=== PATIENT | female | born 2000 | race Caucasian/White ===

== ENCOUNTER 2021-03-21 00:03 | Emergency (ER) | payer OTHER, SELFPAY ==
--- NOTE | ~2021-03-21 | CT_ITS ---
EXAMINATION: CT ABDOMEN AND PELVIS WITH CONTRAST CLINICAL INFORMATION: Left lower quadrant pain COMPARISON: None TECHNIQUE: Multidetector volumetric images were obtained from the superior aspect of the liver through the pubic symphysis following administration 85 mL of Omnipaque 350 intravenous contrast. Sagittal and coronal reformatted images were obtained on the technologist's workstation. Oral contrast: No This CT examination was performed using dose optimization techniques as appropriate, variously including the following: *Automated exposure control *Adjustment of mA and/or kV according to patient size (this includes techniques or standardized protocols for targeted exams where dose is matched to indication/reason for exam; i.e. extremities or head) *Use of iterative reconstruction technique DLP: 778 mGy-cm FINDINGS: LUNG BASES: The visualized lung bases are unremarkable. LIVER, GALLBLADDER, AND BILIARY TREE: The liver is normal in size, shape, and attenuation. No focal hepatic lesion or biliary ductal dilatation is present. The gallbladder is unremarkable with no evidence of radiopaque gallstones, gallbladder wall thickening, or obvious pericholecystic inflammatory changes. PANCREAS: Unremarkable. SPLEEN: Unremarkable. ADRENAL GLANDS: Unremarkable. KIDNEYS AND URETERS: The kidneys are normal in size, shape, and attenuation. No hydronephrosis, hydroureter, or obstructing calculi seen. No perinephric stranding. BLADDER: Unremarkable. GASTROINTESTINAL TRACT: The small and large bowel are unremarkable. The appendix is unremarkable. No free fluid or free air is seen. ABDOMINAL WALL: No significant hernia is appreciated. LYMPH NODES: Normal. VASCULAR: Unremarkable. PELVIC VISCERA: There is mild diffuse prominence of the uterus. OSSEOUS STRUCTURES: Unremarkable. CT/CT abdomen pelvis w con IMPRESSION: No acute findings identified in the abdomen/pelvis. Mild diffuse prominence of the uterus; though no discrete fibroids are seen, this could be further evaluated with pelvic ultrasound.
[2021-03-21 00:53] VITALS: BP 130/83; PULSE 75; RESP 18; TEMP 36.7; O2SAT 100; BMI 35.2
[2021-03-21 02:22] VITALS: BP 135/68; PULSE 71; RESP 18; O2SAT 98
--- NOTE | 2021-03-21 02:23 | PC.NURSE ---
This RN to bedside speaking with patient. Reports vaginal delivery of baby girl 1 week ago, with episiotomy, large child (9lbs), pushed for 4 hours. During , patient had gestational diabetes, denies HTN. Pt presents to ED today with LLQ pain, headache, no vision changes, and mildly elevated blood pressure. Pt is well. Vitals: pulse 70 NSR, 98% room air, 16 respirations/minute, BP 135/68. Will continue to monitor.
--- NOTE | 2021-03-21 02:39 | PC.NURSE ---
Patient in bathroom attempting to provide urine specimen at this time. Pt aware of plan to obtain IV access, labs, and to remain on continuous monitoring until further notice, per . Will continue to monitor.
[2021-03-21 02:51] VITALS: BP 133/73; PULSE 64; RESP 18; O2SAT 99
[2021-03-21 02:58] LABS: MANUAL DIFF FLAG NO
[2021-03-21 02:59] LABS: Basophils Percent Auto 0.3 % (0-2); Eosinophils Absolute Auto 0.2 X10*3/uL (0.0-0.4); Eosinophils Percent Auto 1.8 % (0-4); Hematocrit 28.7 % (37-47); Hemoglobin 9.2 g/dl (12.0-16.0); Imm Gran Abs Auto 0.15 X10*3/uL (0.00-0.03); Imm Gran Pct Auto 1.1 % (0.0-0.4); Lymphocytes Absolute Auto 3.2 X10*3/uL (1.2-4.9); Lymphocytes Percent Auto 23.7 % (20-40); Mean Corpuscular HGB Conc 32.1 g/dl (31.0-35.0); Mean Corpuscular Hemoglobin 28.3 pg (27.0-33.0); Mean Corpuscular Volume 88.3 fL (80-98); Mean Platelet Volume 9.7 fL (9.4-12.3); Monocytes Percent Auto 7.2 % (2-11); Neutrophils Absolute Auto 8.7 X10*3/uL (2.0-8.3); Neutrophils Percent Auto 65.9 % (45-73); Platelet Count 504 X10*3/uL (160-400); Red Blood Count 3.25 X10*6/uL (4.20-5.50); Red Cell Distribution Width 15.1 % (11.0-16.0); White Blood Count 13.3 X10*3/uL (4.8-10.8)
[2021-03-21] MEDS: ondansetron HCL 4 MG/2 ML VIAL IVPUSH (03:00)
[2021-03-21] MEDS: Ketorolac Tromethamine 30 MG/ML VIAL IVPUSH (03:00)
[2021-03-21 03:01] LABS: Glucose Urine UA NEG (NEG); Leukocyte Esterase Urine NEG (NEG); Nitrite Urine NEG (NEG); Specific Gravity - Urine >= 1.030 (1.005-1.025); Urine Blood 3+ (NEG); Urine Ketones NEG (NEG); Urine Protein NEG (NEG-TRACE)
[2021-03-21 03:02] LABS: Appearance Urine HAZY; Color Urine YELLOW
[2021-03-21 03:10] LABS: Mucus Urine 2+ /LPF; Squamous Epithelial Cell Urine 1+ /LPF
[2021-03-21 03:28] LABS: Alanine Aminotransferase 23 U/L (0-31); Alkaline Phosphatase 111 U/L (39-117); Anion Gap 15 (12-20); Aspartate Amino Transferase 15 U/L (5-31); Bilirubin Direct < 0.2 mg/dL (0.0-0.5); Bilirubin Total 0.3 mg/dL (0.0-1.0); Blood Urea Nitrogen 19 mg/dL (9-16); Calcium 9.4 mg/dL (8.4-10.2); Carbon Dioxide 17 mmol/L (22-29); Chloride 109 mmol/L (96-108); Creatinine Clr Calc Pharmacy 127.6; Estimated Glomerular Filt Rate > 60; Glucose Random 97 mg/dL (60-115); Lipase 24 U/L (8-78); Potassium 4.1 mmol/L (3.3-5.1); Sodium 137 mmol/L (135-145); Total Protein 6.8 g/dL (6.5-8.0)
[2021-03-21] MEDS: iohexoL 350 MG/ML 100 ML INFUS..BTL 85 ML IV (03:51)
--- NOTE | 2021-03-21 04:32 | ED_ITS ---
HPI - Abdominal Pain General Chief Complaint: Abdominal Pain Stated Complaint: abdominal pain Time Seen by Provider: 03/21/21 02:03 History of Present Illness HPI narrative: Patient is a 20-year-old female status post vaginal delivery approximately 1 week ago complaining of pain to the left lower quadrant. Patient's vaginal bleeding has been improving. There is no foul small order. T here is no fever no chills. No vomiting. No diaphoresis. No history kidney stone. No coughing or congestion or upper respiratory symptoms. Patient is from home. No chest pain or shortness of breath. No leg swelling. No history of preeclampsia. Positive nausea. Related Data Home Medications Medication Instructions Recorded Confirmed docusate sodium 1 cap PO BID 03/21/21 03/21/21 ibuprofen 1 tab PO Q6H PRN 03/21/21 03/21/21 Allergies Allergy/AdvReac Type Severity Reaction Status Date / Time No Known Allergies Allergy Unverified 06/26/20 19:20 [No Known Allergies*] Review of Systems Review of Systems Constitutional: No Weight loss, No Fever, No Chills, No Night Sweats, No Fatigue, No Malaise ENT/Mouth: No Hearing loss, No Ear Pain, No Nasal Congestion, No Sinus Pain, No Hoarseness, No sore throat, No Rhinorrhea, No Swallowing Difficulty Eyes: No Eye Pain, No Swelling, No Redness, No Foreign Body, No Discharge, No Vision Changes Cardiovascular: No Chest Pain, No SOB, No Dyspnea on Exertion, No Orthopnea, No Edema, No Palpitations Respiratory: No Cough, No Sputum, No Wheezing, No Smoke Exposure, No Dyspnea Gastrointestinal: No Nausea, No Vomiting, No Diarrhea, No Constipation, positive abdominal Pain, No Hematochezia, No Melena Genitourinary: no irregular bleeding, No Dysuria, No Urinary Frequency, No Hematuria, No Urinary Incontinence, No Urgency, No Flank Pain, No Urinary Flow Changes, No Hesitancy Musculoskeletal: No joint pain, No Myalgias, No Joint Swelling Skin: No Skin Lesions, No rash Neuro: No Weakness, No Numbness, No Paresthesias, No Loss of Consciousness, No Dizziness, No Headache Psych: No Anxiety/Panic, No Depression, No SI/HI/AH/VH, No Social Issues, Heme/Lymph: No Bruising, No Bleeding,No Lymphadenopathy Endocrine: No Polyuria, No Polydipsia, No Temperature Intolerance Physical Exam Vital Signs: Vital Signs: Last Vital Signs Temp 98.0 F 03/21/21 00:53 Pulse 75 03/21/21 00:53 Resp 18 03/21/21 00:53 BP 130/83 03/21/21 00:53 Pulse Ox 100 03/21/21 00:53 Body Mass Index 35.2 Appearance: Alert. Oriented X3. No acute distress. Eyes: Pupils equal, round and reactive to light. ENT: Pharynx normal. Neck: Normal inspection. Neck supple. No lymph nodes noted. No crepitus CVS: Normal heart rate and rhythm. Pulses normal. Normal S1 and S2 Respiratory: No respiratory distress. Breath sounds normal. No Wheezing. No rales Abdomen: Soft and nontender. No rigidity. No distention. good BS x4 Skin: Skin warm and dry. Normal skin color. Normal skin turgor. Extremities: No lower extremity edema. Neurovascular intact to all extremities. No Lacerations. No Rash Neuro: Oriented X 3. No motor deficit. No sensory deficit. Moving all extermities. No slurred speech MDM - Abdominal Pain MDM Narrative Medical decision making narrative: Patient's CT of the abdomen showed no acute findings. No abscess no perforation. Patient's electrolytes unremarkable. Labs are normal. Urine positive blood but no evidence for infection. Will discharge patient home close follow-up on an outpatient basis. Patient's blood pressure is now normal. With normal platelets. Normal LFTs. No evidence for preeclampsia. In stable condition with discharge home. Lab Data Result diagrams: 03/21/21 02:53 03/21/21 02:53 Labs: Lab Results 03/21/21 03/21/21 03/21/21 Range/Units 02:46 02:53 02:53 WBC 13.3 H (4.8-10.8) X10*3/uL RBC 3.25 L (4.20-5.50) X10*6/uL Hgb 9.2 L (12.0-16.0) g/dl Hct 28.7 L (37-47) % MCV 88.3 (80-98) fL MCH 28.3 (27.0-33.0) pg MCHC 32.1 (31.0-35.0) g/dl RDW 15.1 (11.0-16.0) % Plt Count 504 H (160-400) X10*3/uL MPV 9.7 (9.4-12.3) fL Immature Gran % (Auto) 1.1 H (0.0-0.4) % Neut % (Auto) 65.9 (45-73) % Lymph % (Auto) 23.7 (20-40) % [place] % (Auto) 7.2 (2-11) % Eos % (Auto) 1.8 (0-4) % Baso % (Auto) 0.3 (0-2) % Lymph # (Auto) 3.2 (1.2-4.9) X10*3/uL [place] # (Auto) 1.0 (0.1-1.2) X10*3/uL Eos # (Auto) 0.2 (0.0-0.4) X10*3/uL Baso # (Auto) 0.0 (0.0-0.2) X10*3/uL Abs Immat Gran (auto) 0.15 H (0.00-0.03) X10*3/uL Absolute Neuts (auto) 8.7 H (2.0-8.3) X10*3/uL Absolute Nucleated RBC 0.000 (0.0-0.012) X10*3/uL Nucleated RBC % (auto) 0.0 (0.0-0.2) /100WBC Sodium 137 (135-145) mmol/L Potassium 4.1 (3.3-5.1) mmol/L Chloride 109 H (96-108) mmol/L Carbon Dioxide 17 L (22-29) mmol/L Anion Gap 15 (12-20) BUN 19 H (9-16) mg/dL Creatinine 0.66 (0.5-1.4) mg/dL Estim Creat Clear Calc 127.6 Estimated GFR > 60 Random Glucose 97 (60-115) mg/dL Calcium 9.4 (8.4-10.2) mg/dL Total Bilirubin 0.3 (0.0-1.0) mg/dL Direct Bilirubin < 0.2 (0.0-0.5) mg/dL AST 15 (5-31) U/L ALT 23 (0-31) U/L Alkaline Phosphatase 111 (39-117) U/L Total Protein 6.8 (6.5-8.0) g/dL Albumin 4.0 (3.5-5.0) g/dL Lipase 24 (8-78) U/L Urine Color YELLOW Urine Appearance HAZY Urine pH 6.0 (5.0-8.0) Ur Specific [place] >= 1.030 H (1.005-1.025) Urine Protein NEG (NEG-TRACE) MG/DL Urine Glucose (UA) NEG (NEG) MG/DL Urine Ketones NEG (NEG) MG/DL Urine Blood 3+ H (NEG) Urine Nitrite NEG (NEG) Ur Leukocyte Esterase NEG (NEG) Urine RBC 15-29 H (0) /HPF Urine WBC 1-4 (0-4) /HPF Ur Squamous Epith Cells 1+ /LPF Urine Bacteria NONE /LPF Urine Mucus 2+ /LPF Discharge Plan Discharge Clinical Impression: Abdominal pain Patient Disposition: Home, Self-Care Instructions: Abdominal Pain (ED) Prescriptions: No Action docusate sodium 100 mg capsule 1 cap PO BID RF: 0 ibuprofen 600 mg tablet 1 tab PO Q6H PRN (Reason: Pain) RF: 0 Referrals: Physician,Unknown [Primary Care Provider] - 2 days (Follow-up with your OBGYN in 2 days.) [facility] Past Medical History Attestation statement: The following information was validated with the patient. Medical History Asthma Vaginal delivery Surgical History No history of previous surgery Social History Social History Advance Directives: No Patient : No (delivered baby 1 week ago.)
[2021-03-21 05:05] VITALS: BP 116/78; PULSE 64; RESP 18; O2SAT 100
== END 2021-03-21 05:16 | disposition home or self-care (01) ==
PROVIDERS: Emergency Provider Emergency Medicine Emergency Medical Services
DX: O90.89 Other complications of the puerperium, not elsewhere classified (principal); R10.9 Unspecified abdominal pain
CPT/HCPCS: 36415; 74177; 80048; 80076; 81001; 81003; 83690; 85025; 96374; 96375; 99284; J1885; J2405; Q9967

== ENCOUNTER 2021-11-03 11:20 | Outpatient (REF) | payer OTHER, SELFPAY ==
[2021-11-03 11:38] LABS: MANUAL DIFF FLAG NO
[2021-11-03 12:13] LABS: Alanine Aminotransferase 49 U/L (0-31); Albumin Level 4.6 g/dL (3.5-5.0); Alkaline Phosphatase 87 U/L (39-117); Anion Gap 12 (12-20); Aspartate Amino Transferase 33 U/L (5-31); Bilirubin Total 0.4 mg/dL (0.0-1.0); Blood Urea Nitrogen 19 mg/dL (9-16); Calcium 10.1 mg/dL (8.4-10.2); Carbon Dioxide 24 mmol/L (22-29); Chloride 109 mmol/L (96-108); Cholesterol 120 mg/dL; Estimated Glomerular Filt Rate > 60; Glucose Fasting 106 mg/dL (60-99); HDL Cholesterol 53 mg/dL; Iron 53 mcg/dL (30-160); LDL Cholesterol Calculated 58 mg/dl; Percent Iron Saturation 15 % (15-50); Potassium 4.7 mmol/L (3.3-5.1); Sodium 140 mmol/L (135-145); Total Iron Binding Capacity 360 mcg/dL (228-428); Total Protein 7.6 g/dL (6.5-8.0); Triglycerides 47 mg/dL; Unsaturated Iron Binding 307 ug/dL
[2021-11-03 12:33] LABS: TSH reflex Free T4 0.36 uIU/mL (0.32-4.0)
[2021-11-03 14:58] LABS: Basophils Absolute Auto 0.1 X10*3/uL (0.0-0.2); Basophils Percent Auto 0.5 % (0-2); Eosinophils Absolute Auto 0.2 X10*3/uL (0.0-0.4); Eosinophils Percent Auto 1.7 % (0-4); Hematocrit 40.9 % (37.0-47.0); Hemoglobin 12.9 g/dl (12.0-16.0); Imm Gran Abs Auto 0.03 X10*3/uL (0.00-0.03); Imm Gran Pct Auto 0.3 % (0.0-0.4); Lymphocytes Absolute Auto 3.1 X10*3/uL (1.2-4.9); Lymphocytes Percent Auto 32.9 % (20-40); Mean Corpuscular HGB Conc 31.5 g/dl (31.0-35.0); Mean Corpuscular Hemoglobin 27.6 pg (27.0-33.0); Mean Corpuscular Volume 87.6 fL (80.0-98.0); Mean Platelet Volume 11.1 fL (9.4-12.3); Monocytes Absolute Auto 0.6 X10*3/uL (0.1-1.2); Monocytes Percent Auto 6.6 % (2-11); Neutrophils Absolute Auto 5.5 x10*3/uL (2.0-8.3); Platelet Count 383 X10*3/uL (160-400); Red Blood Count 4.67 X10*6/uL (4.20-5.50); Red Cell Distribution Width 14.7 % (11.0-16.0); White Blood Count 9.5 X10*3/uL (4.8-10.8)
== END 2021-11-03 11:21 | disposition home or self-care (01) ==
LOC: HO.LAB 11:20
PROVIDERS: Visit Provider Nurse Practitioner Family
DX: E78.00 Pure hypercholesterolemia, unspecified (principal); F41.9 Anxiety disorder, unspecified; I10 Essential (primary) hypertension; Z76.89 Persons encountering health services in other specified circumstances
CPT/HCPCS: 36415; 80053; 80061; 83540; 84443; 85025

== ENCOUNTER 2022-02-24 09:45 | Outpatient (REF) | payer OTHER, SELFPAY ==
--- NOTE | ~2022-02-24 | XR_ITS ---
EXAMINATION: XR chest 2V CLINICAL INFORMATION: Reason for Exam J40 - Bronchitis, not specified as acute or chronic COMPARISON: None TECHNIQUE: 2 views of the chest XR/XR chest 2V FINDINGS/IMPRESSION: * Clear lungs. * No pneumothorax or pleural effusion. * Normal cardiomediastinal silhouette.
[2022-02-24 10:40] LABS: Hematocrit 39.7 % (37.0-47.0); Hemoglobin 13.3 g/dl (12.0-16.0); Mean Corpuscular HGB Conc 33.5 g/dl (31.0-35.0); Mean Corpuscular Hemoglobin 28.5 pg (27.0-33.0); Mean Corpuscular Volume 85.2 fL (80.0-98.0); Mean Platelet Volume 11.3 fL (9.4-12.3); Platelet Count 246 X10*3/uL (160-400); Red Blood Count 4.66 X10*6/uL (4.20-5.50); Red Cell Distribution Width 13.2 % (11.0-16.0); White Blood Count 3.8 X10*3/uL (4.8-10.8)
[2022-02-24 11:13] LABS: Iron 54 mcg/dL (30-160); Percent Iron Saturation 18 % (15-50); Total Iron Binding Capacity 295 mcg/dL (228-428); Unsaturated Iron Binding 241 ug/dL
[2022-02-24 11:21] LABS: Ferritin 156 ng/mL (10-122)
== END 2022-02-24 09:46 | disposition home or self-care (01) ==
LOC: HO.LAB 09:45
PROVIDERS: Visit Provider Physician Assistant
DX: J40 Bronchitis, not specified as acute or chronic (principal); D50.9 Iron deficiency anemia, unspecified; N93.8 Other specified abnormal uterine and vaginal bleeding
CPT/HCPCS: 36415; 71046; 82728; 83540; 85027

== ENCOUNTER 2022-02-24 12:53 | Emergency (ER) | payer OTHER, SELFPAY ==
--- NOTE | ~2022-02-24 | US_ITS ---
EXAMINATION: US ABDOMEN LIMITED CLINICAL INFORMATION: Pain. COMPARISON: None TECHNIQUE: Real-time imaging of the right upper quadrant abdominal viscera. FINDINGS: The partially visualized pancreas is within normal limits. Liver measures 18.1 cm. Overall hyperechoic most consistent with fatty change. Small area of decreased echogenicity adjacent the gallbladder may represent focal fatty sparing. Gallbladder demonstrates gallstone measuring 1.1 x 1.1 x 0.5 cm. No evidence of gallbladder wall thickening. No edema. No tenderness. Common duct measures 4 mm within normal limits. The right kidney is 10 cm. No hydronephrosis. No stone. US/US abdomen limited IMPRESSION: Cholelithiasis without evidence for cholecystitis. Overall hyperechoic liver most consistent with fatty change. Small area adjacent to the gallbladder may represent focal fatty sparing
[2022-02-24 13:03] VITALS: BP 115/89; PULSE 69; RESP 18; TEMP 36.9; O2SAT 100; BMI 34.7
[2022-02-24 13:41] LABS: MANUAL DIFF FLAG NO
[2022-02-24 13:45] LABS: Basophils Percent Auto 0.5 % (0-2); Eosinophils Absolute Auto 0.1 X10*3/uL (0.0-0.4); Eosinophils Percent Auto 1.5 % (0-4); Hematocrit 40.2 % (37.0-47.0); Hemoglobin 13.6 g/dl (12.0-16.0); Imm Gran Abs Auto 0.01 X10*3/uL (0.00-0.03); Imm Gran Pct Auto 0.2 % (0.0-0.4); Lymphocytes Percent Auto 49.5 % (20-40); Mean Corpuscular HGB Conc 33.8 g/dl (31.0-35.0); Mean Corpuscular Volume 85.7 fL (80.0-98.0); Mean Platelet Volume 11.2 fL (9.4-12.3); Monocytes Absolute Auto 0.4 X10*3/uL (0.1-1.2); Monocytes Percent Auto 10.5 % (2-11); Neutrophils Absolute Auto 1.5 x10*3/uL (2.0-8.3); Neutrophils Percent Auto 37.8 % (45-73); Platelet Count 233 X10*3/uL (160-400); Red Blood Count 4.69 X10*6/uL (4.20-5.50); Red Cell Distribution Width 13.1 % (11.0-16.0); White Blood Count 4.1 X10*3/uL (4.8-10.8)
[2022-02-24 13:50] LABS: Appearance Urine CLOUDY; Glucose Urine UA NEG (NEG); Leukocyte Esterase Urine 1+ (NEG); Nitrite Urine NEG (NEG); Specific Gravity - Urine >= 1.030 (1.005-1.025); UACC Culture Trigger YES; Urine Blood 3+ (NEG); Urine Ketones NEG (NEG); Urine Protein TRACE MG/DL (NEG-TRACE)
[2022-02-24 13:51] LABS: Color Urine OTHER; UPreg QC Valid YES; Urine Pregnancy NEGATIVE (NEGATIVE)
[2022-02-24 13:57] LABS: Mucus Urine 1+ /LPF; Squamous Epithelial Cell Urine 1+ /LPF
[2022-02-24 13:58] LABS: RBC Urine TNTC /HPF (0)
[2022-02-24 14:08] LABS: Alanine Aminotransferase 109 U/L (0-31); Albumin Level 4.3 g/dL (3.5-5.0); Alkaline Phosphatase 78 U/L (39-117); Anion Gap 11 (12-20); Aspartate Amino Transferase 66 U/L (5-31); Bilirubin Total 0.3 mg/dL (0.0-1.0); Blood Urea Nitrogen 12 mg/dL (9-16); Calcium 8.8 mg/dL (8.4-10.2); Carbon Dioxide 22 mmol/L (22-29); Chloride 111 mmol/L (96-108); Creatinine Clr Calc Pharmacy 113.6; Estimated Glomerular Filt Rate > 60; Glucose Random 114 mg/dL (60-115); Potassium 3.9 mmol/L (3.3-5.1); Sodium 140 mmol/L (135-145); Total Protein 7.1 g/dL (6.5-8.0)
--- NOTE | 2022-02-24 14:38 | ED.ABDPAIN ---
HPI - Abdominal Pain General Chief Complaint: Abdominal Pain Stated Complaint: sharp pain, vomiting Time Seen by Provider: 02/24/22 14:38 Source: patient Mode of arrival: ambulatory Limitations: no limitations History of Present Illness HPI narrative: upper abdominal pain with nausea and vomiting. No one else sick at home, patient is vaccinated against covid and flu. No medical problems, patient denies pregancy. Patient was at [facility] yesterday with fever, headache and cough, she was COVID negative yesterday MD elicited complaint: abdominal pain Pertinent past history: none Onset (ago): hour(s) Pain Consistency: intermittent Location: epigastric Severity: mild Quality: cramping Exacerbating factors: eating Relieving factors: vomiting Associated symptoms: nausea and fever Related Data Previous Rx's Medication Instructions Recorded hydroxyzine HCl 25 mg tablet 25 mg PO Q6-8H PRN #30 tab 10/19/21 azithromycin 250 mg tablet See Rx Instructions PO .COMPLEX #6 02/23/22 tab benzonatate 200 mg capsule 200 mg PO BID 4 Days #8 cap 02/23/22 ondansetron 4 mg disintegrating 4 mg PO Q8H 4 Days #12 tab 02/24/22 tablet pantoprazole 40 mg tablet,delayed 40 mg PO DAILY #20 tab 02/24/22 release (Protonix) Allergies Allergy/AdvReac Type Severity Reaction Status Date / Time No Known Allergies Allergy Verified 02/23/22 10:29 [No Known Allergies*] Review of Systems Constitutional: Reports no additional constitutional complaints Eyes: Reports no additional eye complaints Denies dizziness Cardiovascular: Reports no additional cardiovascular complaints Respiratory: Reports as per HPI Gastrointestinal: Reports no additional gastrointestinal complaints Genitourinary: Reports no additional female genitourinary complaints Musculoskeletal: Reports no additional musculoskeletal complaints Skin/Breast: Denies rash Reports system reviewed and no additional complaints, except as documented, Denies dizziness and Denies Sensory deficit (Neuro) Psychiatric: Denies anxiety PMFSH Past Medical History Medical History Asthma Vaginal delivery Surgical History No history of previous surgery Family History Family History Maternal Grandmother Diabetes mellitus Mother Cervical cancer Maternal Aunt Breast cancer Other Mental health disorder Myocardial infarct Substance use disorder Social History Social History Housing: Apartment Alcohol intake: never Patient Tobacco Use Status: Never used Tobacco e-Cigarette/Vaping Use: Never Used Second Hand Smoke Exposure: No Advance Directives: No Advance Directives Information Provided: No service: No Current occupational status: employed 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 Cognitive needs: No Hearing needs: No Vision needs: No Physical Exam ED Vital Signs: Vital Signs - 24 hr 02/24/22 13:03 Temperature 98.5 F Pulse Rate 69 Respiratory Rate 18 Blood Pressure 115/89 Pulse Oximetry 100 BMI result Body Mass Index 34.7 Const General: healthy appearing Nutritional Appearance: average body habitus Orientation/consciousness: oriented to person and patient oriented x3 Limitations: no limitations HENMT Head: Yes normal to inspection Ears: external ears normal General nose exam: Normal external nose present Mouth: Normal oral and palatal mucosa present and oropharynx normal Throat: Yes posterior oropharynx normal Eyes General: appearance normal, both eyes and all related structures Neck Neck: Yes normal visual inspection Chest Chest palpation & inspection: normal inspection of the chest Resp Auscultation: clear to auscultation bilaterally Cardio Jugular venous distension: no JVD Rate: regular rate Rhythm: regular rhythm Heart sounds: S1 normal heart sound present and S2 normal heart sound present GI Inspection: Yes normal to inspection Palpation (GI): Soft to palpation, nontender and No hepatosplenomegaly present Auscultation: normal bowel sounds General: Yes no CVA tenderness Back/Spine/Pelvis Back: no CVA tenderness Skin General skin exam: no rashes or lesions noted Neuro General: oriented to person and patient oriented x3 Cranial nerves: Yes CN's II-XII intact bilaterally Motor exam (neuro): 5/5 motor strength present throughout Sensory Exam: No Sensory deficit (Neuro) Extrem General: Yes normal to inspection Psych Appearance: grossly normal Course Reevaluation(s) Reevaluation #1: patient with no real pain on palpation, likely gastritis, LFTs likely elevated from fatty liver, I do not believe this is secodary to gallstones. Will refer to Dr. Florentino surgery Time: 16:52 MDM - Abdominal Pain Lab Data Result diagrams: 02/24/22 13:36 02/24/22 13:36 Labs: Lab Results 02/24/22 02/24/22 02/24/22 Range/Units 13:36 13:36 13:36 WBC 4.1 L (4.8-10.8) X10*3/uL RBC 4.69 (4.20-5.50) X10*6/uL Hgb 13.6 (12.0-16.0) g/dl Hct 40.2 (37.0-47.0) % MCV 85.7 (80.0-98.0) fL MCH 29.0 (27.0-33.0) pg MCHC 33.8 (31.0-35.0) g/dl RDW 13.1 (11.0-16.0) % Plt Count 233 (160-400) X10*3/uL MPV 11.2 (9.4-12.3) fL Immature Gran % (Auto) 0.2 (0.0-0.4) % Neut % (Auto) 37.8 L (45-73) % Lymph % (Auto) 49.5 H (20-40) % [place] % (Auto) 10.5 (2-11) % Eos % (Auto) 1.5 (0-4) % Baso % (Auto) 0.5 (0-2) % Lymph # (Auto) 2.0 (1.2-4.9) X10*3/uL [place] # (Auto) 0.4 (0.1-1.2) X10*3/uL Eos # (Auto) 0.1 (0.0-0.4) X10*3/uL Baso # (Auto) 0.0 (0.0-0.2) X10*3/uL Abs Immat Gran (auto) 0.01 (0.00-0.03) X10*3/uL Absolute Neuts (auto) 1.5 L (2.0-8.3) x10*3/uL Absolute Nucleated RBC 0.000 (0.0-0.012) X10*3/uL Nucleated RBC % (auto) 0.0 (0.0-0.2) /100WBC Sodium 140 (135-145) mmol/L Potassium 3.9 (3.3-5.1) mmol/L Chloride 111 H (96-108) mmol/L Carbon Dioxide 22 (22-29) mmol/L Anion Gap 11 L (12-20) BUN 12 (9-16) mg/dL Creatinine 0.73 (0.5-1.4) mg/dL Estim Creat Clear Calc 113.6 Estimated GFR > 60 Random Glucose 114 (60-115) mg/dL Calcium 8.8 D (8.4-10.2) mg/dL Total Bilirubin 0.3 (0.0-1.0) mg/dL AST 66 H (5-31) U/L ALT 109 H (0-31) U/L Alkaline Phosphatase 78 (39-117) U/L Total Protein 7.1 (6.5-8.0) g/dL Albumin 4.3 (3.5-5.0) g/dL Lipase 26 (8-78) U/L Urine Color OTHER A Urine Appearance CLOUDY Urine pH 6.0 (5.0-8.0) Ur Specific [place] >= 1.030 H (1.005-1.025) Urine Protein TRACE (NEG-TRACE) MG/DL Urine Glucose (UA) NEG (NEG) MG/DL Urine Ketones NEG (NEG) MG/DL Urine Blood 3+ H (NEG) Urine Nitrite NEG (NEG) Ur Leukocyte Esterase 1+ H (NEG) Urine RBC TNTC H (0) /HPF Urine WBC 5-9 H (0-4) /HPF Ur Squamous Epith Cells 1+ /LPF Urine Bacteria NONE /LPF Urine Mucus 1+ /LPF Urine Test (NEGATIVE) 02/24/22 Range/Units 13:36 WBC (4.8-10.8) X10*3/uL RBC (4.20-5.50) X10*6/uL Hgb (12.0-16.0) g/dl Hct (37.0-47.0) % MCV (80.0-98.0) fL MCH (27.0-33.0) pg MCHC (31.0-35.0) g/dl RDW (11.0-16.0) % Plt Count (160-400) X10*3/uL MPV (9.4-12.3) fL Immature Gran % (Auto) (0.0-0.4) % Neut % (Auto) (45-73) % Lymph % (Auto) (20-40) % [place] % (Auto) (2-11) % Eos % (Auto) (0-4) % Baso % (Auto) (0-2) % Lymph # (Auto) (1.2-4.9) X10*3/uL [place] # (Auto) (0.1-1.2) X10*3/uL Eos # (Auto) (0.0-0.4) X10*3/uL Baso # (Auto) (0.0-0.2) X10*3/uL Abs Immat Gran (auto) (0.00-0.03) X10*3/uL Absolute Neuts (auto) (2.0-8.3) x10*3/uL Absolute Nucleated RBC (0.0-0.012) X10*3/uL Nucleated RBC % (auto) (0.0-0.2) /100WBC Sodium (135-145) mmol/L Potassium (3.3-5.1) mmol/L Chloride (96-108) mmol/L Carbon Dioxide (22-29) mmol/L Anion Gap (12-20) BUN (9-16) mg/dL Creatinine (0.5-1.4) mg/dL Estim Creat Clear Calc Estimated GFR Random Glucose (60-115) mg/dL Calcium (8.4-10.2) mg/dL Total Bilirubin (0.0-1.0) mg/dL AST (5-31) U/L ALT (0-31) U/L Alkaline Phosphatase (39-117) U/L Total Protein (6.5-8.0) g/dL Albumin (3.5-5.0) g/dL Lipase (8-78) U/L Urine Color Urine Appearance Urine pH (5.0-8.0) Ur Specific [place] (1.005-1.025) Urine Protein (NEG-TRACE) MG/DL Urine Glucose (UA) (NEG) MG/DL Urine Ketones (NEG) MG/DL Urine Blood (NEG) Urine Nitrite (NEG) Ur Leukocyte Esterase (NEG) Urine RBC (0) /HPF Urine WBC (0-4) /HPF Ur Squamous Epith Cells /LPF Urine Bacteria /LPF Urine Mucus /LPF Urine Test NEGATIVE (NEGATIVE) Imaging Data US - abdomen: Radiologist's impression: US/US abdomen limited IMPRESSION: Cholelithiasis without evidence for cholecystitis. ? Overall hyperechoic liver most consistent with fatty change. Small area adjacent to the gallbladder may represent focal fatty sparing Discharge Plan Discharge Clinical Impression: Elevated LFTs, Fatty liver, Gastritis, Gallstones Patient Disposition: Home, Self-Care Instructions: Gastritis (ED), Gallstones (ED), Non-Alcoholic Fatty Liver Disease (ED) Prescriptions: New pantoprazole [Protonix] 40 mg tablet,delayed release (DR/EC) 40 mg PO DAILY Qty: 20 0RF ondansetron 4 mg tablet,disintegrating 4 mg PO Q8H 4 Days Qty: 12 0RF No Action azithromycin 250 mg tablet See Rx Instructions PO .COMPLEX Qty: 6 0RF Rx Instructions: For 250 mg dose pack: take 500 mg today (day 1), then 250 mg for 4 days (days 2-5) PO benzonatate 200 mg capsule 200 mg PO BID 4 Days Qty: 8 0RF hydroxyzine HCl 25 mg tablet 25 mg PO Q6-8H PRN (Reason: itching) Qty: 30 0RF Referrals: Lidia Barrera MD [Primary Care Provider] - 1 week Aguilar Florentino MD [Physician] - 10 days
[2022-02-24] MEDS: Ondansetron ODT 4 MG TAB.RAPDIS TRANSLINGU (15:01)
[2022-02-24] MEDS: Famotidine 20 MG TABLET PO (15:01)
[2022-02-24 15:15] LABS: Lipase 26 U/L (8-78)
[2022-02-24 17:06] VITALS: BP 106/66; PULSE 77; RESP 16; TEMP 36.5; O2SAT 96
== END 2022-02-24 17:15 | disposition home or self-care (01) ==
PROVIDERS: Emergency Provider Emergency Medicine; PCP Internal Medicine
DX: K29.70 Gastritis, unspecified, without bleeding (principal); K80.20 Calculus of gallbladder without cholecystitis without obstruction; K76.0 Fatty (change of) liver, not elsewhere classified; R79.89 Other specified abnormal findings of blood chemistry
CPT/HCPCS: 36415; 76705; 80053; 81001; 81025; 83690; 85025; 87086; 99283; 99284

== ENCOUNTER → 2022-03-05 13:03 | Outpatient (BNVA) | payer OTHER, SELFPAY | PROVIDERS: PCP Internal Medicine; Referring Provider Internal Medicine; Visit Provider Surgery | DX: K80.20 Calculus of gallbladder without cholecystitis without obstruction (principal); F41.9 Anxiety disorder, unspecified; R79.89 Other specified abnormal findings of blood chemistry | CPT/HCPCS: 99202 ==

== ENCOUNTER → 2022-03-26 09:03 | Outpatient (BNVA) | payer OTHER, SELFPAY | PROVIDERS: PCP Internal Medicine; Visit Provider Advanced Practice Midwife | DX: N92.1 Excessive and frequent menstruation with irregular cycle (principal); Z97.5 Presence of (intrauterine) contraceptive device | CPT/HCPCS: 81025; 99202 ==

== ENCOUNTER 2022-05-07 09:49 | Outpatient (REF) | payer OTHER, SELFPAY ==
[2022-05-07 11:17] LABS: Alanine Aminotransferase 35 U/L (0-31); Albumin Level 4.6 g/dL (3.5-5.0); Alkaline Phosphatase 71 U/L (39-117); Amylase 56 U/L (28-100); Aspartate Amino Transferase 18 U/L (5-31); Bilirubin Direct 0.2 mg/dL (0.0-0.5); Bilirubin Total 0.2 mg/dL (0.0-1.0); Total Protein 7.4 g/dL (6.5-8.0)
[2022-05-07 11:43] LABS: TSH reflex Free T4 0.28 uIU/mL (0.32-4.0)
[2022-05-07 12:00] LABS: Folate 13.7 ng/mL (> or = 4.0); Vitamin B12 589 pg/mL (200-900)
[2022-05-07 12:27] LABS: Free T4 (Free Thyroxine) 1.08 ng/dL (0.71-1.85)
[2022-05-10 18:06] LABS: Transglutaminase Ab IgG <1.0 U/mL; Transglutaminase IgA <1.0 U/mL
[2022-05-14 12:56] LABS: Vitamin D 25-OH, D2 <4 ng/mL; Vitamin D 25-OH, D3 26 ng/mL; Vitamin D 25-OH, Total 26 ng/mL (30-100)
== END 2022-05-07 09:50 | disposition home or self-care (01) ==
LOC: HO.LAB 09:49
PROVIDERS: PCP Internal Medicine; Visit Provider Nurse Practitioner Family
DX: R10.9 Unspecified abdominal pain (principal); R19.7 Diarrhea, unspecified; K21.9 Gastro-esophageal reflux disease without esophagitis; E55.9 Vitamin D deficiency, unspecified; Z12.11 Encounter for screening for malignant neoplasm of colon
CPT/HCPCS: 36415; 80076; 82150; 82306; 82607; 82746; 84439; 84443; 86364; 99202; 99212

== ENCOUNTER → 2022-05-14 09:47 | Outpatient (BNVA) | payer OTHER, SELFPAY | PROVIDERS: PCP Internal Medicine; Visit Provider Nurse Practitioner Family | DX: Z11.0 Encounter for screening for intestinal infectious diseases (principal) | CPT/HCPCS: 99211 ==

== ENCOUNTER 2022-05-14 15:32 | Outpatient (REF) | payer OTHER, SELFPAY ==
[2022-05-15 11:15] LABS: H Pylori Breath Test Negative (Negative)
== END 2022-05-14 15:33 | disposition home or self-care (01) ==
LOC: HO.LNP 15:32
PROVIDERS: Visit Provider Nurse Practitioner Family
DX: K21.9 Gastro-esophageal reflux disease without esophagitis (principal); R79.89 Other specified abnormal findings of blood chemistry
CPT/HCPCS: 83013

== ENCOUNTER 2022-09-18 00:31 | Emergency (ER) | payer OTHER, SELFPAY ==
--- NOTE | 2022-09-18 | ECG_ITS ---
Test Reason : CHEST PAIN Blood Pressure : / mmHG Vent. Rate : 089 BPM Atrial Rate : 089 BPM P-R Int : 160 ms QRS Dur : 070 ms QT Int : 358 ms P-R-T Axes : 048 034 044 degrees QTc Int : 435 ms Normal sinus rhythm Normal ECG When compared with ECG of 08-OCT-2018 00:03, No significant change was found Referred By: Generic ED Physician Electronically Signed By:DIA GO MD
--- NOTE | ~2022-09-18 | XR_ITS ---
EXAMINATION: XR CHEST CLINICAL INFORMATION: Chest pressure COMPARISON: Chest radiograph 02/24/2022. TECHNIQUE: Frontal view of the chest was obtained. FINDINGS: Normal appearance of the cardiomediastinal structures. No effusions or pneumothoraces. Normal pattern of pulmonary vasculature. No focal pulmonary consolidation. No skeletal abnormalities identified. XR/XR chest 1V IMPRESSION: Normal chest.
[2022-09-18 00:33] VITALS: BP 133/71; PULSE 92; RESP 18; TEMP 36.6; O2SAT 98; BMI 33.2
[2022-09-18 00:54] LABS: MANUAL DIFF FLAG NO
[2022-09-18 00:56] LABS: Basophils Percent Auto 0.4 % (0-2); Eosinophils Absolute Auto 0.2 X10*3/uL (0.0-0.4); Hematocrit 38.9 % (37.0-47.0); Hemoglobin 13.3 g/dl (12.0-16.0); Imm Gran Abs Auto 0.04 X10*3/uL (0.00-0.03); Imm Gran Pct Auto 0.4 % (0.0-0.4); Lymphocytes Absolute Auto 3.3 X10*3/uL (1.2-4.9); Mean Corpuscular HGB Conc 34.2 g/dl (31.0-35.0); Mean Corpuscular Volume 87.8 fL (80.0-98.0); Mean Platelet Volume 10.1 fL (9.4-12.3); Monocytes Absolute Auto 0.8 X10*3/uL (0.1-1.2); Monocytes Percent Auto 7.2 % (2-11); Neutrophils Absolute Auto 6.6 x10*3/uL (2.0-8.3); Platelet Count 375 X10*3/uL (160-400); Red Blood Count 4.43 X10*6/uL (4.20-5.50); Red Cell Distribution Width 12.5 % (11.0-16.0); White Blood Count 10.9 X10*3/uL (4.8-10.8)
[2022-09-18 01:08] LABS: Anion Gap 13 (12-20); Blood Urea Nitrogen 13 mg/dL (9-16); Calcium 9.5 mg/dL (8.4-10.2); Carbon Dioxide 22 mmol/L (22-29); Chloride 107 mmol/L (96-108); Creatinine Clr Calc Pharmacy 101.7; Estimated Glomerular Filt Rate > 60; Glucose Random 98 mg/dL (60-115); Potassium 4.1 mmol/L (3.3-5.1); Sodium 138 mmol/L (135-145)
--- NOTE | 2022-09-18 01:08 | ED_ITS ---
HPI - Chest Pain General Chief Complaint: Chest Pain Stated Complaint: chest pain Time Seen by Provider: 09/18/22 00:48 Source: patient Mode of arrival: ambulatory Limitations: no limitations History of Present Illness HPI narrative: hx of anxiety, on hydroxyzine notes on and off chest pain for a month and has sig stress going on at home does have a therapist. she notes tonight pain started around 11am as well. she has no hx of ACS or fam hx. She did not travel recently or have a procedure. she does have a nexplanon in place. she notes no URI symptoms. She does have GERD but is not on medications and has heartburn often MD complaint: chest pain (anxiety) Pertinent past history: other (anxiety) Onset (ago): month(s) (1) Timing of current episode: episodic Prior episodes: Yes Onset: during rest Pain location: substernal Pain radiation: none Severity: moderate Quality: tightness Relieving factors: nothing Exacerbating factors: stress Associated symptoms: dyspnea Treatment prior to arrival: other (atarax) Related Data Home Medications Medication Instructions Recorded Confirmed etonogestrel 68 mg subdermal subdermal 03/26/22 03/26/22 implant (Nexplanon) ibuprofen 600 mg tablet 600 mg PO Q6H PRN 05/14/22 Previous Rx's Medication Instructions Recorded desogestrel-e.estradiol 0.15 1 tab PO DAILY #28 tabs 03/26/22 mg-0.02 mg(21)/e.estrad 0.01 mg(5) tablet famotidine 20 mg tablet (Pepcid) 20 mg PO BEDTIME #30 tabs 05/07/22 hydroxyzine HCl 25 mg tablet 25 mg PO Q6-8H PRN itching #30 tabs 08/19/22 famotidine 20 mg tablet (Pepcid) 20 mg PO DAILY PRN abdominal 09/18/22 discomfort #30 tabs Allergies Allergy/AdvReac Type Severity Reaction Status Date / Time No Known Allergies Allergy Verified 05/14/22 10:03 [No Known Allergies*] Review of Systems Review of Systems: Constitutional : No Weight loss, No Fever, No Chills ENT/Mouth : No sore throat, No Rhinorrhea Eyes: No Eye Pain, No Swelling Cardiovascular : pos Chest Pain, pos SOB, no Dyspnea on Exertion, No Orthopnea, No Edema, No Palpitations Respiratory : No Cough, No Sputum Gastrointestinal : no Nausea, No Vomiting, No Diarrhea, No abdominal Pain, No Hematochezia, No Melena Genitourinary : No Dysuria, No Urinary Frequency Musculoskeletal : No joint pain, No Myalgias, No Joint Swelling Skin : No Skin Lesions, No rash Neuro : No Weakness, No Numbness, No Dizziness, No Headache Psych : pos Anxiety/Panic, No Depression Heme/Lymph: No Bruising, No Lymphadenopathy Endocrine : No Polyuria, No Polydipsia All other systems reviewed and are negative [facility] Past Medical History Attestation statement: The following information was validated with the patient. Medical History (Updated 09/18/22 @ 02:07 by Belkis Dudley DO) Asthma Moderate anxiety Vaginal delivery Surgical History No history of previous surgery Family History Family History Maternal Grandmother Diabetes mellitus Mother Cervical cancer Maternal Aunt Breast cancer Other Mental health disorder Myocardial infarct Substance use disorder Social History Social History Housing: Apartment Alcohol intake: never Patient Tobacco Use Status: Never used Tobacco Smoked in Last 30 Days: No e-Cigarette/Vaping Use: Never Used Second Hand Smoke Exposure: No Use of substances other than those prescribed or required for medical reasons: No Substance Use Type: Marijuana Advance Directives: No Advance Directives Information Provided: No Patient : No service: No Current occupational status: employed 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 Oriented X3. No acute distress. Eyes: Pupils equal, round and reactive to light. ENT: Pharynx normal. Neck: Normal inspection. Neck supple. CVS: Normal heart rate and rhythm. Pulses normal. Respiratory: No respiratory distress. Breath sounds normal. Abdomen: Soft and nontender. Skin: Skin warm and dry. Normal skin color. Normal skin turgor. Extremities: No lower extremity edema. No calf ttp Neuro: Oriented X 3. No motor deficit. No sensory deficit. Course Course Course Narrative: negative workup stable for DC Medications Administered Discontinued Medications Generic Name Dose Route Start Last Admin Trade Name Andrésq PRN Reason Stop Dose Admin Al Hydroxide/Mg Hydroxide 15 ml 09/18/22 00:56 09/18/22 01:16 Magnesium Hydrox/Alum Hydrox 30 Ml Oral.Susp PO 09/18/22 00:57 15 ml ONCE ONE Administration Lidocaine HCl 15 ml 09/18/22 00:56 09/18/22 01:16 Lidocaine Hcl Viscous 2 % 15 Ml Solution MUCOUS MEM 09/18/22 00:57 15 ml ONCE ONE Administration Medical Decision Making Medical Decision Making [facility] Narrative: 22 yo female with hx of anxiety here with chest tightness x 1 month on and off at this time had another episode tonight could be heart burn, atypical chest pain, given chronicity doubt VTE. She also has no risk factors for ACS, labs, EKG, CXR and troponin from triage was ordered. GI cocktail for GERD ordered, abdominal exam is benign - if all negative stable for DC Differential Diagnoses: Differential diagnosis (anxiety, atypical chest pain, GERD) Lab Attestation: I reviewed the patient's lab results. Independent interpretation of EKG, rhythm strip, radiology study: Independent interp EKG,rhythm strip, radiology study I performed an independent interpretation of the: EKG and Plain X-Ray My interpretation is no acute findings Rate: 81 Rhythm: NSR [place]: normal Normal P waves. Normal [place]A. Normal QRS complex. ST T wave : normal no JAYDEN qTC: normal prior studies: no acute ischemia The study has been interpreted contemporaneously by me. . Tests considered but not performed: Tests Considered But Not Performed (ddimer given nexplanon use - this has been going on for a month has no signs of DVT, no hypoxia, tachycardia it is not pleuritic doubt VTE as the cause) Discharge Plan Discharge Clinical Impression: Atypical chest pain GERD (gastroesophageal reflux disease) Qualifiers: Esophagitis presence: without esophagitis Qualified Code(s): K21.9 - Gastro- esophageal reflux disease without esophagitis Patient Disposition: Home, Self-Care Instructions: Chest Pain (ED), Gastroesophageal Reflux Disease (ED) Additional Instructions: return to ED for any worsening symptoms or concerns please follow up with your doctor for further testing in the next 1 to 2 weeks continue with your therapist Prescriptions: New famotidine [Pepcid] 20 mg tablet 20 mg PO DAILY PRN (Reason: abdominal discomfort) Qty: 30 0RF No Action hydroxyzine HCl 25 mg tablet 25 mg PO Q6-8H PRN (Reason: itching) Qty: 30 0RF Nexplanon 68 mg implant subdermal desog-e.estradiol/e.estradiol 0.15-0.02 mgx21 /0.01 mg x 5 tablet 1 tab PO DAILY Qty: 28 0RF ibuprofen 600 mg tablet 600 mg PO Q6H PRN famotidine [Pepcid] 20 mg tablet 20 mg PO BEDTIME Qty: 30 3RF Stand Alone Forms: Work/School Release
[2022-09-18] MEDS: Lidocaine HCl Viscous 2 % 15 ML SOLUTION MUCOUS MEM (01:16)
[2022-09-18] MEDS: Magnesium Hydrox/Alum Hydrox 30 ML ORAL.SUSP 15 ML PO (01:16)
[2022-09-18 01:18] LABS: Troponin-I High Sensitivity < 3.5 ng/L (<3.5-17.0)
[2022-09-18 01:22] VITALS: PULSE 74; RESP 15
--- NOTE | 2022-09-18 02:16 | PC.NURSE ---
Discharge instructions reviewed with pt. Pt verbalizes understanding.
== END 2022-09-18 02:17 | disposition home or self-care (01) ==
PROVIDERS: Emergency Provider Emergency Medicine; PCP Internal Medicine
DX: R07.89 Other chest pain (principal); K21.9 Gastro-esophageal reflux disease without esophagitis; F12.90 Cannabis use, unspecified, uncomplicated
CPT/HCPCS: 36415; 71045; 80048; 84484; 85025; 93005; 99283; 99285

== ENCOUNTER 2023-02-24 11:49 | Emergency (ER) | payer OTHER, SELFPAY ==
--- NOTE | 2023-02-24 11:57 | ED_ITS ---
HPI - General Adult General Stated complaint: hives on back Source: patient Mode of arrival: ambulatory Limitations: no limitations History of Present Illness HPI narrative: this is a 22-year-old female presenting to the emergency department for evaluation of hives that have been occurring intermittently over the past week week and half, patient tells me she is not sure which she is allergic to, the hives are raised, itchy, uncomfortable. Patient tells me she has no known allergies. Has not seen an allergy/exhibition specialist. Has never had this issue in the past. Recently found out she is unsure how long she does have follow-up with PCP in OBGYN. Patient denies changes in voice, trouble controlling secretions, sore throat, shortness of breath, chest pain, nausea, vomiting, abdominal pain, headache and vision changes. Related Data Home Medications Medication Instructions Recorded Confirmed etonogestrel 68 mg subdermal subdermal 03/26/22 03/26/22 implant (Nexplanon) ibuprofen 600 mg tablet 600 mg PO Q6H PRN 05/14/22 Previous Rx's Medication Instructions Recorded desogestrel-e.estradiol 0.15 1 tab PO DAILY #28 tabs 03/26/22 mg-0.02 mg(21)/e.estrad 0.01 mg(5) tablet famotidine 20 mg tablet (Pepcid) 20 mg PO BEDTIME #30 tabs 05/07/22 hydroxyzine HCl 25 mg tablet 25 mg PO Q6-8H PRN itching #30 tabs 08/19/22 famotidine 20 mg tablet (Pepcid) 20 mg PO DAILY PRN abdominal 09/18/22 discomfort #30 tabs epinephrine 0.3 mg/0.3 mL 0.3 mg (0.3 mL) IM Q4H PRN 02/24/23 injection, auto-injector (EpiPen anaphylaxis #2 ea 2-Poli) prednisone 20 mg tablet 40 mg PO DAILY 5 days #10 tabs 02/24/23 Allergies Allergy/AdvReac Type Severity Reaction Status Date / Time No Known Allergies Allergy Verified 05/14/22 10:03 [No Known Allergies*] Review of Systems Review of Systems: Constitutional : No Weight loss, No Fever, No Chills, No Fatigue, No Malaise ENT/Mouth : No sore throat, No Rhinorrhea Eyes: No Eye Pain, No Swelling, No Redness Cardiovascular : No Chest Pain, No SOB, No Dyspnea on Exertion, No Orthopnea, No Edema, No Palpitations Respiratory : No Cough, No Sputum, No Wheezing Gastrointestinal : No Nausea, No Vomiting, No Diarrhea, No Constipation, No abdominal Pain, No Hematochezia, No Melena Genitourinary : No Dysuria, No Urinary Frequency, No Hematuria, Musculoskeletal : No joint pain, No Myalgias, No Joint Swelling Skin : No Skin Lesions, + rash Neuro : No Weakness, No Numbness, No Dizziness, No Headache Psych : No Anxiety/Panic, No Depression All other systems reviewed and are negative Yes all other systems are reviewed and are negative [facility] Past Medical History Attestation statement: The following information was validated with the patient. Source: old records reviewed and nursing notes reviewed Medical History Asthma Moderate anxiety Vaginal delivery Surgical History No history of previous surgery Family History Family History Maternal Grandmother Diabetes mellitus Mother Cervical cancer Maternal Aunt Breast cancer Other Mental health disorder Myocardial infarct Substance use disorder Social History Social History Housing: Apartment Alcohol intake: never Patient Tobacco Use Status: Never used Tobacco e-Cigarette/Vaping Use: Never Used Second Hand Smoke Exposure: No Substance Use Type: Marijuana service: No Current occupational status: employed 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 Oriented X3.? No acute distress.? Head: Normocephalic, atraumatic, no step-offs or deformities Eyes: Pupils equal, round and reactive to light.? ENT: Pharynx normal.?Uvula midline. No edema to lips, tongue, uvula, hard and soft palate, gums. Patient speaking in full sentences controlling secretions well. Neck: Normal inspection.? Neck supple.? CVS: Normal heart rate and rhythm.? Pulses normal.? Respiratory: No respiratory distress.? Breath sounds normal.? No stridor Abdomen: Soft and nontender.? Skin: Skin warm and dry.? Normal skin color.? Normal skin turgor.?+ urticaria to abdomen and back throughout Extremities: No lower extremity edema.? No calf ttp. 5/5 strength to bilateral upper and lower extremities Neuro: Oriented X 3.? No motor deficit.? No sensory deficit. CN 2-12 intact Medical Decision Making Medical Decision Making MDM Narrative: 1200 22-year-old female presents with rash to abdomen and back, going on intermittently for the past week week and a half. Physical exam with scattered urticaria to abdomen and back. Pharynx normal.?Uvula midline. No edema to lips, tongue, uvula, hard and soft palate, gums. Patient speaking in full sentences controlling secretions well. Concerns for allergic reaction, no signs of anaphylaxis. No signs of airway compromise. Plan Discharge patient from the waiting room, no signs of respiratory distress, airway compromise, patient well appearing. Will discharge with prednisone, EpiPen, patient has Benadryl at home. I did have a long conversation with patient about proper use of EpiPen. She verbalizes understanding. All questions were answered. She was encouraged to speak to pharmacist if she has any other questions. Educated patient on diagnosis and treatment plan, answered all question, patient verbalizes understanding. At this time patient will be discharged home, advised to return with new or worsening symptoms. Educated on worrisome signs and symptoms and when to return. At this time I feel comfortable discharge home. Differential Diagnosis Differential Diagnoses: The differential diagnosis associated with the presentation includes Concerns for allergic reaction, no signs of anaphylaxis. No signs of airway compromise. Core Measures AMI core measures followed: Yes Measure exclusions: not indicated Critical Care Time Critical Care Time Critical Care Time: No Discharge Plan Discharge Clinical Impression: Urticaria, Allergic reaction Patient Disposition: Home, Self-Care Instructions: Urticaria (ED) Additional Instructions: Take your medications as prescribed. If you were prescribed antibiotics today, it is important that you take your medication to their entirety, do not skip any doses, do not finish them early. Follow-up with your primary care provider this week. Return to the emergency department with new or worsening symptoms. Such as fevers, chills, chest pain, shortness of breath, nausea, vomiting, dizziness, headache, vision changes, lethargy In case of emergency call 911 Prescriptions: New prednisone 20 mg tablet 40 mg PO DAILY 5 Days Qty: 10 0RF epinephrine [EpiPen 2-Poli] 0.3 mg/0.3 mL auto-injector 0.3 mg IM Q4H PRN (Reason: anaphylaxis) Qty: 2 0RF No Action hydroxyzine HCl 25 mg tablet 25 mg PO Q6-8H PRN (Reason: itching) Qty: 30 0RF famotidine [Pepcid] 20 mg tablet 20 mg PO DAILY PRN (Reason: abdominal discomfort) Qty: 30 0RF Nexplanon 68 mg implant subdermal desog-e.estradiol/e.estradiol 0.15-0.02 mgx21 /0.01 mg x 5 tablet 1 tab PO DAILY Qty: 28 0RF ibuprofen 600 mg tablet 600 mg PO Q6H PRN famotidine [Pepcid] 20 mg tablet 20 mg PO BEDTIME Qty: 30 3RF Referrals: [facility] [Outside] - 1 week Lidia Barrera MD [Primary Care Provider] - 2 days Stand Alone Forms: Work/School Release
[2023-02-24 11:58] VITALS: BP 133/74; PULSE 75; RESP 18; TEMP 36.6; O2SAT 99; BMI 35.2
== END 2023-02-24 12:11 | disposition home or self-care (01) ==
PROVIDERS: Emergency Provider Student in an Organized Health Care Education/Training Program; PCP Internal Medicine
DX: L50.9 Urticaria, unspecified (principal); T78.40XA Allergy, unspecified, initial encounter; X58.XXXA Exposure to other specified factors, initial encounter
CPT/HCPCS: 99282; 99283

== ENCOUNTER → 2023-03-02 13:05 | Outpatient (BNVA) | payer OTHER, SELFPAY | PROVIDERS: PCP Internal Medicine; Visit Provider Advanced Practice Midwife | DX: Z32.01 Encounter for pregnancy test, result positive (principal) | CPT/HCPCS: 81025; 99212 ==

== ENCOUNTER 2023-03-02 18:10 | Emergency (ER) | payer OTHER, SELFPAY ==
--- NOTE | ~2023-03-02 | US_ITS ---
EXAMINATION: US OBSTETRICAL ULTRASOUND CLINICAL INFORMATION: Vaginal bleeding, positive hCG, LMP 12/19/2022. COMPARISON: None available. LMP: 12/19/2022. Gestational age by maternal dates is 10 weeks and 3 days. Estimated date of delivery by maternal dates is 09/25/2023. TECHNIQUE: Ultrasound of the maternal pelvis is performed using transabdominal and transvaginal transducers. Transvaginal imaging is performed due to inadequate visualization transabdominally. M-mode Doppler is also performed. FINDINGS: Anteverted uterus measuring 6.6 x 4.3 x 4.7 cm. There is a single intrauterine gestational sac measuring 0.36 cm corresponding to a gestational age of 4 weeks and 6 days. No evidence of yolk sac or pole. The gestational sac is centered in the lower endometrial cavity. Ovaries are normal in morphology with preserved flow on color Doppler at the moment of this examination. The right ovary measures 2.9 x 1.6 x 2.2 cm and the left ovary measures 1.6 x 0.9 x 1 cm. There is a 1.6 cm simple cyst in the right ovary, almost certainly benign and for which no imaging follow-up is recommended. No adnexal mass. No free fluid. US/US OB pelvic and transvaginal IMPRESSION: Single intrauterine gestational sac in an atypical positioning within the lower endometrial canal with no evidence of yolk sac or pole, corresponding to a sonographic age of 4 weeks and 6 days with significant discrepancy with respect to the calculated gestational age by LMP (10 weeks and 3 days). Findings are concerning for failure, recommend correlation with quantitative hCG and OB consultation.
[2023-03-02 18:17] VITALS: BP 113/64; PULSE 78; RESP 18; TEMP 36.1; O2SAT 99; BMI 34.2
--- NOTE | 2023-03-02 18:18 | ED.PREGNANCY ---
HPI - General Chief complaint: Vaginal Bleeding Stated complaint: preg 10 weeks, bleeding Time Seen by Provider: 03/02/23 21:13 Source: patient Mode of arrival: ambulatory Limitations: no limitations History of Present Illness HPI Narrative: Patient comes to the emergency room complaining of vaginal bleeding. Patient states she is a at approximately 10 weeks of gestational age by last menstrual period. Patient states that starting this morning patient had vaginal bleeding. Patient went for an OB intake today, patient was estimated to be 10 weeks and 4 days based on last menstrual period. The vaginal bleeding was attributed to sexual intercourse from last night. Patient complaining of abdominal cramping and heavy vaginal bleeding. Related Data Home Medications Medication Instructions Recorded Confirmed ibuprofen 600 mg tablet 600 mg PO Q6H PRN 05/14/22 03/02/23 pantoprazole 40 mg tablet,delayed 40 mg PO DAILY 03/02/23 03/02/23 release Previous Rx's Medication Instructions Recorded famotidine 20 mg tablet (Pepcid) 20 mg PO BEDTIME #30 tabs 05/07/22 hydroxyzine HCl 25 mg tablet 25 mg PO Q6-8H PRN itching #30 tabs 08/19/22 famotidine 20 mg tablet (Pepcid) 20 mg PO DAILY PRN abdominal 09/18/22 discomfort #30 tabs epinephrine 0.3 mg/0.3 mL 0.3 mg (0.3 mL) IM Q4H PRN 02/24/23 injection, auto-injector (EpiPen anaphylaxis #2 ea 2-Poli) ibuprofen 600 mg tablet 600 mg PO TID PRN fever or pain 03/02/23 #20 tabs vitamin with calcium 1 tab PO DAILY #90 tabs 03/02/23 no.72-iron 27 mg-folic acid 1 mg tablet ( Vitamins Plus Low Iron) Allergies Allergy/AdvReac Type Severity Reaction Status Date / Time No Known Allergies Allergy Verified 03/02/23 13:09 [No Known Allergies*] Review of Systems Review of Systems: Constitutional : No Weight loss, No Fever, No Chills, No Night Sweats, No Fatigue, No Malaise ENT/Mouth : No Hearing loss, No Ear Pain, No Nasal Congestion, No Sinus Pain, No Hoarseness, No sore throat, No Rhinorrhea, No Swallowing Difficulty Eyes: No Eye Pain, No Swelling, No Redness, No Foreign Body, No Discharge, No Vision Changes Cardiovascular : No Chest Pain, No SOB, No Dyspnea on Exertion, No Orthopnea, No Edema, No Palpitations Respiratory : No Cough, No Sputum, No Wheezing, No Smoke Exposure, No Dyspnea Gastrointestinal : No Nausea, No Vomiting, No Diarrhea, No Constipation, No abdominal Pain, No Hematochezia, No Melena Genitourinary : Complaint of vaginal bleeding, No Dysuria, No Urinary Frequency, No Hematuria, No Urinary Incontinence, No Urgency, No Flank Pain, No Urinary Flow Changes, No Hesitancy Musculoskeletal : No joint pain, No Myalgias, No Joint Swelling Skin : No Skin Lesions, No rash Neuro : No Weakness, No Numbness, No Paresthesias, No Loss of Consciousness, No Dizziness, No Headache Psych : No Anxiety/Panic, No Depression, No SI/HI/AH/VH, No Social Issues, Heme/Lymph: No Bruising, No Bleeding,No Lymphadenopathy Endocrine : No Polyuria, No Polydipsia, No Temperature Intolerance [facility] Past Medical History Medical History Asthma Moderate anxiety Vaginal delivery Surgical History No history of previous surgery Family History Family History Maternal Grandmother Diabetes mellitus Mother Cervical cancer Maternal Aunt Breast cancer Other Mental health disorder Myocardial infarct Substance use disorder Social History Social History (Updated 03/02/23 @ 13:11 by Soiba Hagan MA) Household Members: Children Household Members Other:: fiance Housing: Apartment Alcohol intake: never Patient Tobacco Use Status: Never used Tobacco e-Cigarette/Vaping Use: Never Used Second Hand Smoke Exposure: No Substance Use Type: Marijuana Advance Directives: No Advance Directives Information Provided: Yes service: No Current occupational status: employed 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 Oriented X3. No acute distress. Eyes: Pupils equal, round and reactive to light. ENT: Pharynx normal. Neck: Normal inspection. Neck supple. No lymph nodes noted. No crepitus CVS: Normal heart rate and rhythm. Pulses normal. Normal S1 and S2 Respiratory: No respiratory distress. Breath sounds normal. No Wheezing. No rales Abdomen: Soft and nontender. No rigidity. No distention. : The cervix is open, there is a large amount of tissue protruding through the cervix Skin: Skin warm and dry. Normal skin color. Normal skin turgor. Extremities: No lower extremity edema. No Lacerations. No Rash Neuro: Oriented X 3. No motor deficit. No sensory deficit. Moving all extremities. No slurred speech. CN 2 through 12 grossly intact Psych: calm, cooperative, normal affect Course Course Course Narrative: RME: 22 yo at about 10 weeks gestation, c/o vaginal bleeding w/clots since this AM, using 1 pad, with assoc abdominal cramping. LMP 12/19/22. Was seen at OBGYN this morning for 1st appointment, suspected bleeding from intercourse, however pt admits bleeding worsening since appt. labs, UA, ABO, OB US ordered Full HPI, ROS and PE to be performed by primary ED provider. Medical Decision Making Medical Decision Making [facility] Narrative: -I discussed the ultrasound findings with the patient. On physical exam, patient's cervix is completely open, protruding a large amount of tissue. I was able to extract the tissue from the cervical os with loop forceps. The amount of bleeding was small to moderate. -I discussed the physical exam with the patient, this is at miscarriage -patient instructed to follow-up with OB Gyne a.m., discussed with the patient is very important to have a close follow-up, if she does not pass all the tissue, patient may need a D&C. This time, a large amount of tissue was removed, there is no bleeding at this time. Lab Data 03/02/23 20:32 03/02/23 20:32 Labs: Lab Results 03/02/23 03/02/23 03/02/23 Range/Units 20:32 20:32 20:32 WBC 15.5 H (4.8-10.8) X10*3/uL RBC 4.30 (4.20-5.50) X10*6/uL Hgb 13.0 (12.0-16.0) g/dl Hct 39.4 (37.0-47.0) % MCV 91.6 (80.0-98.0) fL MCH 30.2 (27.0-33.0) pg MCHC 33.0 (31.0-35.0) g/dl RDW 12.9 (11.0-16.0) % Plt Count 357 (160-400) X10*3/uL MPV 10.4 (9.4-12.3) fL Immature Gran % (Auto) 0.6 H (0.0-0.4) % Neut % (Auto) 66.2 (45-73) % Lymph % (Auto) 23.9 (20-40) % [place] % (Auto) 6.6 (2-11) % Eos % (Auto) 2.2 (0-4) % Baso % (Auto) 0.5 (0-2) % Lymph # (Auto) 3.7 (1.2-4.9) X10*3/uL [place] # (Auto) 1.0 (0.1-1.2) X10*3/uL Eos # (Auto) 0.3 (0.0-0.4) X10*3/uL Baso # (Auto) 0.1 (0.0-0.2) X10*3/uL Abs Immat Gran (auto) 0.09 H (0.00-0.03) X10*3/uL Absolute Neuts (auto) 10.3 H (2.0-8.3) x10*3/uL Absolute Nucleated RBC 0.000 (0.0-0.012) X10*3/uL Nucleated RBC % (auto) 0.0 (0.0-0.2) /100WBC Sodium 139 (135-145) mmol/L Potassium 3.9 (3.3-5.1) mmol/L Chloride 105 (96-108) mmol/L Carbon Dioxide 23 (22-29) mmol/L Anion Gap 15 (12-20) BUN 14 (9-16) mg/dL Creatinine 0.75 (0.5-1.4) mg/dL Estim Creat Clear Calc 108.7 Estimated GFR > 60 Random Glucose 112 (60-115) mg/dL Calcium 9.7 (8.4-10.2) mg/dL Magnesium 2.2 (1.6-2.6) mg/dL Total Bilirubin 0.4 (0.0-1.0) mg/dL Direct Bilirubin 0.1 (0.0-0.5) mg/dL AST 12 (5-31) U/L ALT 25 (0-31) U/L Alkaline Phosphatase 67 (39-117) U/L Total Protein 6.9 (6.5-8.0) g/dL Albumin 4.3 (3.5-5.0) g/dL Lipase 21 (8-78) U/L Beta HCG, Quant 597 mIU/mL Urine Color Urine Appearance Urine pH (5.0-9.0) Ur Specific [place] (1.005-1.025) Urine Protein (Neg-Trace) mg/dL Urine Glucose (UA) (Negative) mg/dL Urine Ketones (Negative) mg/dL Urine Blood (Negative) Urine Nitrite (Negative) Ur Leukocyte Esterase (Negative) Urine RBC (0-2) /HPF Urine WBC (0-5) /HPF Ur Squamous Epith Cells (0-2) /HPF Urine Bacteria (None Seen) Hyaline Casts (0-2) /LPF Blood Type A Positive 03/02/23 Range/Units 22:25 WBC (4.8-10.8) X10*3/uL RBC (4.20-5.50) X10*6/uL Hgb (12.0-16.0) g/dl Hct (37.0-47.0) % MCV (80.0-98.0) fL MCH (27.0-33.0) pg MCHC (31.0-35.0) g/dl RDW (11.0-16.0) % Plt Count (160-400) X10*3/uL MPV (9.4-12.3) fL Immature Gran % (Auto) (0.0-0.4) % Neut % (Auto) (45-73) % Lymph % (Auto) (20-40) % [place] % (Auto) (2-11) % Eos % (Auto) (0-4) % Baso % (Auto) (0-2) % Lymph # (Auto) (1.2-4.9) X10*3/uL [place] # (Auto) (0.1-1.2) X10*3/uL Eos # (Auto) (0.0-0.4) X10*3/uL Baso # (Auto) (0.0-0.2) X10*3/uL Abs Immat Gran (auto) (0.00-0.03) X10*3/uL Absolute Neuts (auto) (2.0-8.3) x10*3/uL Absolute Nucleated RBC (0.0-0.012) X10*3/uL Nucleated RBC % (auto) (0.0-0.2) /100WBC Sodium (135-145) mmol/L Potassium (3.3-5.1) mmol/L Chloride (96-108) mmol/L Carbon Dioxide (22-29) mmol/L Anion Gap (12-20) BUN (9-16) mg/dL Creatinine (0.5-1.4) mg/dL Estim Creat Clear Calc Estimated GFR Random Glucose (60-115) mg/dL Calcium (8.4-10.2) mg/dL Magnesium (1.6-2.6) mg/dL Total Bilirubin (0.0-1.0) mg/dL Direct Bilirubin (0.0-0.5) mg/dL AST (5-31) U/L ALT (0-31) U/L Alkaline Phosphatase (39-117) U/L Total Protein (6.5-8.0) g/dL Albumin (3.5-5.0) g/dL Lipase (8-78) U/L Beta HCG, Quant mIU/mL Urine Color Yellow Urine Appearance Clear Urine pH 5.5 (5.0-9.0) Ur Specific [place] >= 1.030 H (1.005-1.025) Urine Protein 30 (1+) H (Neg-Trace) mg/dL Urine Glucose (UA) Negative (Negative) mg/dL Urine Ketones Trace (Negative) mg/dL Urine Blood Large (3+) H (Negative) Urine Nitrite Negative (Negative) Ur Leukocyte Esterase Small (1+) H (Negative) Urine RBC 11-20 H (0-2) /HPF Urine WBC 21-50 H (0-5) /HPF Ur Squamous Epith Cells 3-5 (0-2) /HPF Urine Bacteria 2+ (None Seen) Hyaline Casts 3-5 (0-2) /LPF Blood Type Discharge Plan Discharge Clinical Impression: Spontaneous miscarriage Patient Disposition: Home, Self-Care Instructions: Miscarriage (ED) Additional Instructions: Please follow-up with your primary care physician tomorrow. If you have any worsening or new symptoms, please return to the emergency room or call 911 Prescriptions: New ibuprofen 600 mg tablet 600 mg PO TID PRN (Reason: fever or pain) Qty: 20 0RF No Action hydroxyzine HCl 25 mg tablet 25 mg PO Q6-8H PRN (Reason: itching) Qty: 30 0RF famotidine [Pepcid] 20 mg tablet 20 mg PO DAILY PRN (Reason: abdominal discomfort) Qty: 30 0RF epinephrine [EpiPen 2-Poli] 0.3 mg/0.3 mL auto-injector 0.3 mg IM Q4H PRN (Reason: anaphylaxis) Qty: 2 0RF ibuprofen 600 mg tablet 600 mg PO Q6H PRN famotidine [Pepcid] 20 mg tablet 20 mg PO BEDTIME Qty: 30 3RF pantoprazole 40 mg tablet,delayed release (DR/EC) 40 mg PO DAILY Vitamin Plus Low Iron 27 mg iron- 1 mg tablet 1 tab PO DAILY Qty: 90 1RF Referrals: Kana Mercado MD [Physician] - 03/03/23 9:00 am
[2023-03-02 20:41] LABS: MANUAL DIFF FLAG NO
[2023-03-02 20:45] LABS: Basophils Absolute Auto 0.1 X10*3/uL (0.0-0.2); Basophils Percent Auto 0.5 % (0-2); Eosinophils Absolute Auto 0.3 X10*3/uL (0.0-0.4); Eosinophils Percent Auto 2.2 % (0-4); Hematocrit 39.4 % (37.0-47.0); Imm Gran Abs Auto 0.09 X10*3/uL (0.00-0.03); Imm Gran Pct Auto 0.6 % (0.0-0.4); Lymphocytes Absolute Auto 3.7 X10*3/uL (1.2-4.9); Lymphocytes Percent Auto 23.9 % (20-40); Mean Corpuscular Hemoglobin 30.2 pg (27.0-33.0); Mean Corpuscular Volume 91.6 fL (80.0-98.0); Mean Platelet Volume 10.4 fL (9.4-12.3); Monocytes Percent Auto 6.6 % (2-11); Neutrophils Absolute Auto 10.3 x10*3/uL (2.0-8.3); Neutrophils Percent Auto 66.2 % (45-73); Platelet Count 357 X10*3/uL (160-400); Red Cell Distribution Width 12.9 % (11.0-16.0); White Blood Count 15.5 X10*3/uL (4.8-10.8)
[2023-03-02 21:04] LABS: Alanine Aminotransferase 25 U/L (0-31); Albumin Level 4.3 g/dL (3.5-5.0); Alkaline Phosphatase 67 U/L (39-117); Anion Gap 15 (12-20); Aspartate Amino Transferase 12 U/L (5-31); Bilirubin Direct 0.1 mg/dL (0.0-0.5); Bilirubin Total 0.4 mg/dL (0.0-1.0); Blood Urea Nitrogen 14 mg/dL (9-16); Calcium 9.7 mg/dL (8.4-10.2); Carbon Dioxide 23 mmol/L (22-29); Chloride 105 mmol/L (96-108); Creatinine Clr Calc Pharmacy 108.7; Estimated Glomerular Filt Rate > 60; Glucose Random 112 mg/dL (60-115); HCG Quantitative 597 mIU/mL; Lipase 21 U/L (8-78); Magnesium 2.2 mg/dL (1.6-2.6); Potassium 3.9 mmol/L (3.3-5.1); Sodium 139 mmol/L (135-145); Total Protein 6.9 g/dL (6.5-8.0)
[2023-03-02 22:23] VITALS: BP 122/66; RESP 20; O2SAT 97
[2023-03-02 22:34] LABS: Appearance Urine Clear; Color Urine Yellow; Glucose Urine UA Negative (Negative); Leukocyte Esterase Urine Small (1+) (Negative); Nitrite Urine Negative (Negative); PH 5.5 (5.0-9.0); Specific Gravity - Urine >= 1.030 (1.005-1.025); UMIC TRIGGER UACC YES; Urine Blood Large (3+) (Negative); Urine Ketones Trace mg/dL (Negative); Urine Protein 30 (1+) mg/dL (Neg-Trace)
[2023-03-02 22:36] LABS: Bacteria Urine 2+ (None Seen); UACC Culture Trigger YES; WBC Urine 21-50 /HPF (0-5)
[2023-03-02] MEDS: Ibuprofen 600 MG TABLET PO (22:52)
== END 2023-03-02 22:56 | disposition home or self-care (01) ==
PROVIDERS: Physician Assistant; Emergency Provider Emergency Medicine; PCP Internal Medicine
DX: O03.9 Complete or unspecified spontaneous abortion without complication (principal); O46.91 Antepartum hemorrhage, unspecified, first trimester; Z3A.10 10 weeks gestation of pregnancy
CPT/HCPCS: 36415; 76801; 76817; 80048; 80076; 81001; 83690; 83735; 84702; 85025; 86900; 86901; 87086; 99284

== ENCOUNTER 2023-07-27 21:36 | Emergency (ER) | payer OTHER, SELFPAY ==
[2023-07-27 21:38] VITALS: BP 123/69; PULSE 80; RESP 18; TEMP 37; O2SAT 99; BMI 35.2
[2023-07-27 21:53] VITALS: BP 126/65; PULSE 82; RESP 18; TEMP 36.7; O2SAT 98
--- NOTE | 2023-07-27 22:02 | ED.NAVMDI ---
HPI - Nausea/Vomiting/Diarrhea General Chief complaint: Nausea/Vomiting/Diarrhea Stated complaint: Vomiting/ 8 weeks Time Seen by Provider: 07/27/23 21:56 Source: patient Mode of arrival: ambulatory Limitations: no limitations History of Present Illness HPI Narrative: Patient 8 weeks [id number] here for vomiting for last 2 weeks unable to hold down any liquids or solids has some mild epigastric pain no urinary symptoms no diarrhea no vaginal bleed patient had similar vomiting during her 1st Related Data Home Medications Medication Instructions Recorded Confirmed ibuprofen 600 mg tablet 600 mg PO Q6H PRN 05/14/22 03/02/23 pantoprazole 40 mg tablet,delayed 40 mg PO DAILY 03/02/23 03/02/23 release Previous Rx's Medication Instructions Recorded famotidine 20 mg tablet (Pepcid) 20 mg PO BEDTIME #30 tabs 05/07/22 hydroxyzine HCl 25 mg tablet 25 mg PO Q6-8H PRN itching #30 tabs 08/19/22 famotidine 20 mg tablet (Pepcid) 20 mg PO DAILY PRN abdominal 09/18/22 discomfort #30 tabs epinephrine 0.3 mg/0.3 mL 0.3 mg (0.3 mL) IM Q4H PRN 02/24/23 injection, auto-injector (EpiPen anaphylaxis #2 ea 2-Poli) ibuprofen 600 mg tablet 600 mg PO TID PRN fever or pain 03/02/23 #20 tabs vitamin with calcium 1 tab PO DAILY #90 tabs 03/02/23 no.72-iron 27 mg-folic acid 1 mg tablet ( Vitamins Plus Low Iron) cefuroxime axetil 250 mg tablet 250 mg PO BID 7 days #14 tabs 07/28/23 ondansetron 4 mg disintegrating 4 mg PO Q6-8H PRN nausea and 07/28/23 tablet vomiting #7 tabs pyridoxine (vitamin B6) 25 mg 25 mg PO TID PRN vomiting #30 tabs 07/28/23 tablet Allergies Allergy/AdvReac Type Severity Reaction Status Date / Time No Known Allergies Allergy Verified 03/02/23 13:09 [No Known Allergies*] Review of Systems Review of Systems: Yes all other systems are reviewed and are negative PMFSH Past Medical History Medical History Asthma Moderate anxiety Vaginal delivery Surgical History No history of previous surgery Family History Family History Maternal Grandmother Diabetes mellitus Mother Cervical cancer Maternal Aunt Breast cancer Other Mental health disorder Myocardial infarct Substance use disorder Social History Social History (Updated 03/02/23 @ 13:11 by Sobia Hagan MA) Household Members: Children Household Members Other:: fiance Housing: Apartment Alcohol intake: never Patient Tobacco Use Status: Never used Tobacco Smoked in Last 30 Days: No e-Cigarette/Vaping Use: Never Used Second Hand Smoke Exposure: No Use of substances other than those prescribed or required for medical reasons: No Substance Use Type: Marijuana Advance Directives: No Patient : Yes service: No Current occupational status: employed 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 Oriented X3. No acute distress. Eyes: No pallor or icterus ENT: Pharynx normal. Oral Mucosa moist Neck: Normal inspection. Neck supple. CVS: Normal heart rate and rhythm. Pulses normal. Respiratory: No respiratory distress. Equal air entry bilateral, Abdomen: Soft and nontender. Bowel sounds are present, no mass palpable, no CVA tenderness Skin: Skin warm and dry. Normal skin color. Normal skin turgor. Extremities: No lower extremity edema. No calf tenderness Neuro: Oriented X 3. Medications Administered Discontinued Medications Generic Name Dose Route Start Last Admin Trade Name Freq PRN Reason Stop Dose Admin Acetaminophen 650 mg 07/28/23 00:26 07/28/23 00:38 Acetaminophen 325 Mg Tablet PO 07/28/23 00:27 650 mg ONCE ONE Administration Sodium Chloride 1,000 mls @ 999 mls/hr 07/27/23 22:03 07/27/23 23:13 Ns IV 07/27/23 23:03 Infused .Q1H1M ONE Infusion Ceftriaxone Sodium 1 gm/ 50 mls @ 100 mls/hr 07/28/23 00:09 07/28/23 00:55 Sodium Chloride IV 07/28/23 00:38 Infused ONCE ONE Infusion Sodium Chloride 1,000 mls @ 999 mls/hr 07/28/23 00:09 07/28/23 01:24 Ns IV 07/28/23 01:09 Infused .Q1H1M ONE Infusion Ondansetron HCl 4 mg 07/27/23 22:03 07/27/23 22:11 Ondansetron Hcl 4 Mg/2 Ml Vial IVPUSH 07/27/23 22:04 4 mg ONCE ONE Administration Ondansetron HCl 4 mg 07/28/23 00:26 07/28/23 00:41 Ondansetron Hcl 4 Mg/2 Ml Vial IVPUSH 07/28/23 00:27 4 mg ONCE ONE Administration Medical Decision Making Medical Decision Making MDM Narrative: Patient with UTI with hyperemesis gravidarum received IV fluids feeling much better taking p.o. fluids at time of discharge discharge patient home on [facility] Differential Diagnosis Differential Diagnoses: The differential diagnosis associated with the presentation includes Hyper emesis gravidarum/UTI Lab Data [facility] Lab Attestation statement: I reviewed the patient's lab results. 07/27/23 21:58 07/27/23 21:58 Labs: Lab Results 07/27/23 07/27/23 Range/Units 21:58 21:59 WBC 13.8 H (4.8-10.8) X10*3/uL RBC 4.22 (4.20-5.50) X10*6/uL Hgb 12.9 (12.0-16.0) g/dl Hct 37.0 (37.0-47.0) % MCV 87.7 (80.0-98.0) fL MCH 30.6 (27.0-33.0) pg MCHC 34.9 (31.0-35.0) g/dl RDW 12.1 (11.0-16.0) % Plt Count 330 (160-400) X10*3/uL MPV 10.2 (9.4-12.3) fL Immature Gran % (Auto) 0.4 (0.0-0.4) % Neut % (Auto) 78.3 H (45-73) % Lymph % (Auto) 15.5 L (20-40) % [place] % (Auto) 5.0 (2-11) % Eos % (Auto) 0.6 (0-4) % Baso % (Auto) 0.2 (0-2) % Lymph # (Auto) 2.2 (1.2-4.9) X10*3/uL [place] # (Auto) 0.7 (0.1-1.2) X10*3/uL Eos # (Auto) 0.1 (0.0-0.4) X10*3/uL Baso # (Auto) 0.0 (0.0-0.2) X10*3/uL Abs Immat Gran (auto) 0.05 H (0.00-0.03) X10*3/uL Absolute Neuts (auto) 10.8 H (2.0-8.3) x10*3/uL Absolute Nucleated RBC 0.000 (0.0-0.012) X10*3/uL Nucleated RBC % (auto) 0.0 (0.0-0.2) /100WBC Sodium 136 (135-145) mmol/L Potassium 3.6 (3.3-5.1) mmol/L Chloride 105 (96-108) mmol/L Carbon Dioxide 19 L (22-29) mmol/L Anion Gap 16 (12-20) BUN 9 (9-16) mg/dL Creatinine 0.63 (0.5-1.4) mg/dL Estim Creat Clear Calc 130.3 Estimated GFR > 60 Random Glucose 101 (60-115) mg/dL Calcium 9.7 (8.4-10.2) mg/dL Total Bilirubin 0.4 (0.0-1.0) mg/dL AST 13 (5-31) U/L ALT 18 (0-31) U/L Alkaline Phosphatase 55 (39-117) U/L Total Protein 7.4 (6.5-8.0) g/dL Albumin 4.3 (3.5-5.0) g/dL Urine Color Dark Yellow Urine Appearance Cloudy Urine pH 6.0 (5.0-9.0) Ur Specific [place] >= 1.030 H (1.005-1.025) Urine Protein 30 (1+) H (Neg-Trace) mg/dL Urine Glucose (UA) Negative (Negative) mg/dL Urine Ketones >=160 (Negative) mg/dL Urine Blood Negative (Negative) Urine Nitrite Negative (Negative) Ur Leukocyte Esterase Moderate (2+) H (Negative) Urine RBC 0-2 (0-2) /HPF Urine WBC >50 H (0-5) /HPF Ur Squamous Epith Cells 11-20 (0-2) /HPF Urine Bacteria 3+ (None Seen) Hyaline Casts 0-2 (0-2) /LPF Discharge Plan Discharge Clinical Impression: Vomiting during , UTI (urinary tract infection) during Patient Disposition: Home, Self-Care Instructions: Hyperemesis Gravidarum (ED), Urinary Tract Infection in (ED) Additional Instructions: Drink plenty of fluid Medicine for nausea/vomiting as prescribed Antibiotic as prescribed Follow-up with your OBG Prescriptions: New pyridoxine (vitamin B6) 25 mg tablet 25 mg PO TID PRN (Reason: vomiting) Qty: 30 0RF cefuroxime axetil 250 mg tablet 250 mg PO BID 7 Days Qty: 14 0RF ondansetron 4 mg tablet,disintegrating 4 mg PO Q6-8H PRN (Reason: nausea and vomiting) Qty: 7 0RF No Action hydroxyzine HCl 25 mg tablet 25 mg PO Q6-8H PRN (Reason: itching) Qty: 30 0RF famotidine [Pepcid] 20 mg tablet 20 mg PO DAILY PRN (Reason: abdominal discomfort) Qty: 30 0RF ibuprofen 600 mg tablet 600 mg PO TID PRN (Reason: fever or pain) Qty: 20 0RF epinephrine [EpiPen 2-Poli] 0.3 mg/0.3 mL auto-injector 0.3 mg IM Q4H PRN (Reason: anaphylaxis) Qty: 2 0RF ibuprofen 600 mg tablet 600 mg PO Q6H PRN famotidine [Pepcid] 20 mg tablet 20 mg PO BEDTIME Qty: 30 3RF pantoprazole 40 mg tablet,delayed release (DR/EC) 40 mg PO DAILY Vitamin Plus Low Iron 27 mg iron- 1 mg tablet 1 tab PO DAILY Qty: 90 1RF Interventions: ED Discharge Assessment Last Done: 07/28/23 02:13 Discharge Date/Time: 07/28/23 02:19
[2023-07-27 22:05] LABS: MANUAL DIFF FLAG NO
--- NOTE | 2023-07-27 22:05 | MHC.EDTECH ---
PT changed into hospital gown blood work and urine sent to lab for processing
[2023-07-27 22:08] LABS: Appearance Urine Cloudy; Color Urine Dark Yellow; Glucose Urine UA Negative (Negative); Leukocyte Esterase Urine Moderate (2+) (Negative); Nitrite Urine Negative (Negative); Specific Gravity - Urine >= 1.030 (1.005-1.025); UMIC TRIGGER UACC YES; Urine Blood Negative (Negative); Urine Ketones >=160 mg/dL (Negative); Urine Protein 30 (1+) mg/dL (Neg-Trace)
[2023-07-27] MEDS: 0.9 % Sodium Chloride 1,000 ML 999 ML IV (22:10)
[2023-07-27 22:11] LABS: Bacteria Urine 3+ (None Seen); Hyaline Casts Urine 0-2 /LPF (0-2); RBC Urine 0-2 /HPF (0-2); UACC Culture Trigger YES; WBC Urine >50 /HPF (0-5)
[2023-07-27 22:11] LABS: Basophils Percent Auto 0.2 % (0-2); Eosinophils Absolute Auto 0.1 X10*3/uL (0.0-0.4); Eosinophils Percent Auto 0.6 % (0-4); Hemoglobin 12.9 g/dl (12.0-16.0); Imm Gran Abs Auto 0.05 X10*3/uL (0.00-0.03); Imm Gran Pct Auto 0.4 % (0.0-0.4); Lymphocytes Absolute Auto 2.2 X10*3/uL (1.2-4.9); Lymphocytes Percent Auto 15.5 % (20-40); Mean Corpuscular HGB Conc 34.9 g/dl (31.0-35.0); Mean Corpuscular Hemoglobin 30.6 pg (27.0-33.0); Mean Corpuscular Volume 87.7 fL (80.0-98.0); Mean Platelet Volume 10.2 fL (9.4-12.3); Monocytes Absolute Auto 0.7 X10*3/uL (0.1-1.2); Neutrophils Absolute Auto 10.8 x10*3/uL (2.0-8.3); Neutrophils Percent Auto 78.3 % (45-73); Platelet Count 330 X10*3/uL (160-400); Red Blood Count 4.22 X10*6/uL (4.20-5.50); Red Cell Distribution Width 12.1 % (11.0-16.0); White Blood Count 13.8 X10*3/uL (4.8-10.8)
[2023-07-27] MEDS: ondansetron HCL 4 MG/2 ML VIAL IVPUSH (22:11)
[2023-07-27 22:34] LABS: Alanine Aminotransferase 18 U/L (0-31); Albumin Level 4.3 g/dL (3.5-5.0); Alkaline Phosphatase 55 U/L (39-117); Anion Gap 16 (12-20); Aspartate Amino Transferase 13 U/L (5-31); Bilirubin Total 0.4 mg/dL (0.0-1.0); Blood Urea Nitrogen 9 mg/dL (9-16); Calcium 9.7 mg/dL (8.4-10.2); Carbon Dioxide 19 mmol/L (22-29); Chloride 105 mmol/L (96-108); Creatinine Clr Calc Pharmacy 130.3; Estimated Glomerular Filt Rate > 60; Glucose Random 101 mg/dL (60-115); Potassium 3.6 mmol/L (3.3-5.1); Sodium 136 mmol/L (135-145); Total Protein 7.4 g/dL (6.5-8.0)
[2023-07-27 23:26] VITALS: BP 109/64; PULSE 81; RESP 18; O2SAT 98
[2023-07-28] MEDS: 0.9 % Sodium Chloride 1,000 ML 999 ML IV (00:21)
[2023-07-28] MEDS: cefTRIAXone sodium 1 GM in 0.9 % Sodium Chloride 50 ML IV (00:21)
[2023-07-28] MEDS: Acetaminophen 325 MG TABLET 650 MG PO (00:38)
[2023-07-28] MEDS: ondansetron HCL 4 MG/2 ML VIAL IVPUSH (00:41)
== END 2023-07-28 02:19 | disposition home or self-care (01) ==
PROVIDERS: Emergency Provider Internal Medicine; PCP Internal Medicine
DX: O21.0 Mild hyperemesis gravidarum (principal); O23.41 Unspecified infection of urinary tract in pregnancy, first trimester; N39.0 Urinary tract infection, site not specified; R19.7 Diarrhea, unspecified; R10.13 Epigastric pain; Z3A.08 8 weeks gestation of pregnancy; Z79.899 Other long term (current) drug therapy
CPT/HCPCS: 36415; 80053; 81001; 85025; 87086; 96361; 96374; 96375; 96376; 99284; 99285; J0696; J2405

== ENCOUNTER 2023-08-11 19:44 | Emergency (ER) | payer OTHER, SELFPAY ==
--- NOTE | 2023-08-11 | ECG_ITS ---
Test Reason : CHEST PAIN Blood Pressure : / mmHG Vent. Rate : 091 BPM Atrial Rate : 091 BPM P-R Int : 162 ms QRS Dur : 074 ms QT Int : 376 ms P-R-T Axes : 042 030 019 degrees QTc Int : 462 ms Normal sinus rhythm Normal ECG When compared with ECG of 18-SEP-2022 00:37, No significant change was found Referred By: Generic ED Physician Electronically Signed By:CIRILO KOENIG MD
[2023-08-11 19:50] VITALS: BP 107/70; PULSE 86; RESP 20; TEMP 36.3; O2SAT 98; BMI 33.5
[2023-08-11 20:00] VITALS: BP 117/72; PULSE 87; RESP 16; TEMP 37.1; O2SAT 99
[2023-08-11 20:11] LABS: Hemoglobin 12.5 g/dl (12.0-16.0); Mean Corpuscular HGB Conc 34.7 g/dl (31.0-35.0); Mean Corpuscular Hemoglobin 30.5 pg (27.0-33.0); Mean Corpuscular Volume 87.8 fL (80.0-98.0); Mean Platelet Volume 10.1 fL (9.4-12.3); Platelet Count 335 X10*3/uL (160-400); White Blood Count 12.8 X10*3/uL (4.8-10.8)
[2023-08-11 20:34] LABS: Alanine Aminotransferase 21 U/L (0-31); Albumin Level 4.1 g/dL (3.5-5.0); Alkaline Phosphatase 51 U/L (39-117); Anion Gap 15 (12-20); Aspartate Amino Transferase 21 U/L (5-31); Bilirubin Total 0.5 mg/dL (0.0-1.0); Blood Urea Nitrogen 6 mg/dL (9-16); Calcium 9.9 mg/dL (8.4-10.2); Carbon Dioxide 19 mmol/L (22-29); Chloride 107 mmol/L (96-108); Creatinine Clr Calc Pharmacy 133.2; Estimated Glomerular Filt Rate > 60; Glucose Random 110 mg/dL (60-115); Potassium 3.9 mmol/L (3.3-5.1); Sodium 137 mmol/L (135-145); Total Protein 7.5 g/dL (6.5-8.0)
--- NOTE | 2023-08-11 21:45 | PC.NURSE ---
PT arrived from waiting. PT alert and oriented. Complains of history of hyperemesis gravidarum with prior and is currently 10 weeks with similar complaints. Pt notes she has been vomiting several times today and is unable to keep fluids or food down. She reports she was at [facility] yesterday and was prescribed a new medication(is unable to recall the name at this time) and notes it has not been helping. IV line placed in left AC. Awaiting provider assessment and orders
[2023-08-11 22:00] VITALS: BP 103/54; PULSE 70; RESP 16; TEMP 36.8; O2SAT 99
[2023-08-11] MEDS: diphenhydrAMINE HCL 50 MG/ML VIAL 25 MG IVPUSH (23:09)
[2023-08-11] MEDS: Metoclopramide HCl 10 MG/2 ML VIAL IVPUSH (23:09)
[2023-08-11] MEDS: 0.9 % Sodium Chloride 1,000 ML 999 ML IV (23:10)
[2023-08-11 23:20] VITALS: BP 123/67; PULSE 82; RESP 18; O2SAT 99
--- NOTE | 2023-08-11 23:32 | ED_ITS ---
HPI - General Adult General Chief complaint: General Medical Stated complaint: vomiting Time Seen by Provider: 08/11/23 22:33 Source: patient, RN notes reviewed and old records reviewed Mode of arrival: ambulatory Limitations: no limitations History of Present Illness HPI narrative: 23-year-old female presents for evaluation of vomiting. Patient endorses being approximately 10 weeks . Her OBGYN is [facility]. She is Patient reports that she has been vomiting for several weeks already. She denies any significant abdominal pain. Denies any fevers or chills She reports her 1st she had issues with vomiting throughout the entire Her 2nd was a miscarriage back in February Denies any lower abdominal pain or cramping today. Denies any complaints Related Data Home Medications Medication Instructions Recorded Confirmed ibuprofen 600 mg tablet 600 mg PO Q6H PRN 05/14/22 03/02/23 pantoprazole 40 mg tablet,delayed 40 mg PO DAILY 03/02/23 03/02/23 release Previous Rx's Medication Instructions Recorded famotidine 20 mg tablet (Pepcid) 20 mg PO BEDTIME #30 tabs 05/07/22 hydroxyzine HCl 25 mg tablet 25 mg PO Q6-8H PRN itching #30 tabs 08/19/22 famotidine 20 mg tablet (Pepcid) 20 mg PO DAILY PRN abdominal 09/18/22 discomfort #30 tabs epinephrine 0.3 mg/0.3 mL 0.3 mg (0.3 mL) IM Q4H PRN 02/24/23 injection, auto-injector (EpiPen anaphylaxis #2 ea 2-Poli) ibuprofen 600 mg tablet 600 mg PO TID PRN fever or pain 03/02/23 #20 tabs vitamin with calcium 1 tab PO DAILY #90 tabs 03/02/23 no.72-iron 27 mg-folic acid 1 mg tablet ( Vitamins Plus Low Iron) cefuroxime axetil 250 mg tablet 250 mg PO BID 7 days #14 tabs 07/28/23 ondansetron 4 mg disintegrating 4 mg PO Q6-8H PRN nausea and 07/28/23 tablet vomiting #7 tabs pyridoxine (vitamin B6) 25 mg 25 mg PO TID PRN vomiting #30 tabs 07/28/23 tablet doxylamine 10 mg-pyridoxine (vit See Rx Instructions .Route 08/12/23 B6) 10 mg tablet,delayed release .COMPLEX PRN nausea and vomiting (Diclegis) #30 tabs Allergies Allergy/AdvReac Type Severity Reaction Status Date / Time No Known Allergies Allergy Verified 03/02/23 13:09 [No Known Allergies*] Review of Systems 2 Constitutional: Constitutional: Denies chills, Denies fever(s) and Reports weakness Eyes: Eyes: Denies blurry vision ENT: Denies sore throat Cardiovascular: Cardiovascular: Denies chest pain and Denies dyspnea Respiratory: Respiratory: Denies cough and Denies dyspnea Gastrointestinal: Gastrointestinal: Denies abdominal pain, Reports nausea and Reports vomiting Genitourinary: Genitourinary: Denies pelvic pain and Denies vaginal discharge Musculoskeletal: Musculoskeletal: Denies back pain Integumentary/Breasts: Skin/Breast: Denies rash Neurologic: Reports weakness PMFSH Past Medical History Medical History Asthma Moderate anxiety Vaginal delivery Surgical History No history of previous surgery Family History Family History Maternal Grandmother Diabetes mellitus Mother Cervical cancer Maternal Aunt Breast cancer Other Mental health disorder Myocardial infarct Substance use disorder Social History Social History (Updated 03/02/23 @ 13:11 by Sobia Hagan MA) Household Members: Children Household Members Other:: fiance Housing: Apartment Alcohol intake: never Patient Tobacco Use Status: Never used Tobacco Smoked in Last 30 Days: No e-Cigarette/Vaping Use: Never Used Second Hand Smoke Exposure: No Use of substances other than those prescribed or required for medical reasons: No Substance Use Type: Marijuana Advance Directives: No Advance Directives Information Provided: No Patient : Yes service: No Current occupational status: employed 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 Cognitive needs: No Hearing needs: No Vision needs: No Physical Exam ED Vital Signs: Vital Signs - 24 hr 08/11/23 19:50 08/11/23 20:00 08/11/23 22:00 Temperature 97.4 F 98.7 F 98.2 F Pulse Rate 86 87 70 Respiratory Rate 20 16 16 Blood Pressure 107/70 117/72 103/54 L Pulse Oximetry 98 99 99 Oxygen Delivery Method Room Air Room Air Room Air 08/11/23 23:20 Temperature Pulse Rate 82 Respiratory Rate 18 Blood Pressure 123/67 Pulse Oximetry 99 Oxygen Delivery Method Room Air BMI result Body Mass Index 33.5 Const General: healthy appearing, comfortable, no acute distress, alert and awake Nutritional Appearance: well nourished Orientation/consciousness: patient oriented x3 HENMT Head: Yes normocephalic and Yes atraumatic Eyes Eyelids: Yes eyelids normal Conjunctivae: conjunctivae normal Sclerae: sclerae normal Corneas: corneas normal Pupils: Equal, round and reactive pupils present EOM: EOMs intact bilaterally Neck Neck: Yes full ROM Resp Effort & Inspection: normal respiratory effort, able to speak in complete sentences and not labored GI Inspection: No distended Palpation (GI): Soft to palpation, not firm, nontender, no guarding and not rigid Skin General skin exam: elasticity normal Neuro General: patient oriented x3 Cranial nerves: Yes Equal, round and reactive pupils present and Yes Bilaterally intact EOM present Cognition (Neuro): normal cognition Extrem Other: Moving all extremities well without any obvious deformities Course Reevaluation(s) Reevaluation #1: Patient was able tolerate apple juice and crackers without any further vomiting. She does complain of headaches will be given Tylenol. She will otherwise be discharged home to follow-up with her OBGYN Time: 01:15 Medications Administered Discontinued Medications Generic Name Dose Route Start Last Admin Trade Name Freq PRN Reason Stop Dose Admin Al Hydroxide/Mg Hydroxide 30 ml 08/11/23 23:32 08/11/23 23:44 Magnesium Hydrox/Alum Hydrox 30 Ml Oral.Susp PO 08/11/23 23:33 30 ml ONCE ONE Administration Diphenhydramine HCl 25 mg 08/11/23 22:43 08/11/23 23:09 Diphenhydramine Hcl 50 Mg/Ml Vial IVPUSH 08/11/23 22:44 25 mg ONCE ONE Administration Sodium Chloride 1,000 mls @ 999 mls/hr 08/11/23 22:45 08/11/23 23:44 Ns IV 08/11/23 23:45 Infused .Q1H1M CAIO Infusion Lidocaine HCl 15 ml 08/11/23 23:32 08/11/23 23:44 Lidocaine Hcl Viscous 2 % 15 Ml Solution MUCOUS MEM 08/11/23 23:33 15 ml ONCE ONE Administration Metoclopramide HCl 10 mg 08/11/23 22:43 08/11/23 23:09 Metoclopramide Hcl 10 Mg/2 Ml Vial IVPUSH 08/11/23 22:44 10 mg ONCE ONE Administration Medical Decision Making Medical Decision Making [facility] Narrative: 23-year-old female presents for evaluation of vomiting . She is a followed at [facility] Denies any severe abdominal pain. Her labs are significant for leukocytosis of 12.8 which may be related to both the and the amount of vomiting she has been experiencing. She has no significant anemia. No significant electrolyte abnormalities. No abdominal pain or cramping, no vaginal bleeding, low suspicion for miscarriage. Most likely diagnosis hyperemesis gravidarum. Will treat with IV fluids, Reglan, Benadryl and re-evaluate. Differential Diagnosis Differential Diagnoses: The differential diagnosis associated with the presentation includes Hyperemesis gravidarum Vomiting Dehydration PAT Acute cholecystitis Lab Data [facility] Lab Attestation statement: I reviewed the patient's lab results. Mild leukocytosis of 12.8 K. No significant anemia. No significant electrolyte abnormalities. 08/11/23 20:03 08/11/23 20:03 Labs: Lab Results 08/11/23 08/11/23 Range/Units 20:03 23:58 WBC 12.8 H (4.8-10.8) X10*3/uL RBC 4.10 L (4.20-5.50) X10*6/uL Hgb 12.5 (12.0-16.0) g/dl Hct 36.0 L (37.0-47.0) % MCV 87.8 (80.0-98.0) fL MCH 30.5 (27.0-33.0) pg MCHC 34.7 (31.0-35.0) g/dl RDW 12.0 (11.0-16.0) % Plt Count 335 (160-400) X10*3/uL MPV 10.1 (9.4-12.3) fL Absolute Nucleated RBC 0.000 (0.0-0.012) X10*3/uL Nucleated RBC % (auto) 0.0 (0.0-0.2) /100WBC Sodium 137 (135-145) mmol/L Potassium 3.9 (3.3-5.1) mmol/L Chloride 107 (96-108) mmol/L Carbon Dioxide 19 L (22-29) mmol/L Anion Gap 15 (12-20) BUN 6 L (9-16) mg/dL Creatinine 0.60 (0.5-1.4) mg/dL Estim Creat Clear Calc 133.2 Estimated GFR > 60 Random Glucose 110 (60-115) mg/dL Calcium 9.9 (8.4-10.2) mg/dL Total Bilirubin 0.5 (0.0-1.0) mg/dL AST 21 (5-31) U/L ALT 21 (0-31) U/L Alkaline Phosphatase 51 (39-117) U/L Troponin I High Sens < 2.7 (<3.5-17.0) ng/L Total Protein 7.5 (6.5-8.0) g/dL Albumin 4.1 (3.5-5.0) g/dL Beta HCG, Quant [id number] mIU/mL Discharge Plan Discharge Clinical Impression: Hyperemesis gravidarum Patient Disposition: Home, Self-Care Instructions: Hyperemesis Gravidarum (ED) Additional Instructions: Take the Diclegis as prescribed Drink lots of fluids, but small sips at a time. Call your OBGYN tomorrow morning to schedule follow-up Return for new or worsening symptoms Prescriptions: New doxylamine-pyridoxine (vit B6) [Diclegis] 10-10 mg tablet,delayed release (DR/EC) See Rx Instructions .ROUTE .COMPLEX PRN (Reason: nausea and vomiting) Qty: 30 0RF Rx Instructions: Two tablets at bedtime on days 1 and 2; if symptoms persist, take 1 tablet in morning and 2 tablets at bedtime on day 3; if symptoms persist, may further increase to 1 tablet in morning, 1 tablet mid-afternoon, and 2 tablets at bedtime on day 4 PRN No Action hydroxyzine HCl 25 mg tablet 25 mg PO Q6-8H PRN (Reason: itching) Qty: 30 0RF famotidine [Pepcid] 20 mg tablet 20 mg PO DAILY PRN (Reason: abdominal discomfort) Qty: 30 0RF ibuprofen 600 mg tablet 600 mg PO TID PRN (Reason: fever or pain) Qty: 20 0RF pyridoxine (vitamin B6) 25 mg tablet 25 mg PO TID PRN (Reason: vomiting) Qty: 30 0RF cefuroxime axetil 250 mg tablet 250 mg PO BID 7 Days Qty: 14 0RF ondansetron 4 mg tablet,disintegrating 4 mg PO Q6-8H PRN (Reason: nausea and vomiting) Qty: 7 0RF epinephrine [EpiPen 2-Poli] 0.3 mg/0.3 mL auto-injector 0.3 mg IM Q4H PRN (Reason: anaphylaxis) Qty: 2 0RF ibuprofen 600 mg tablet 600 mg PO Q6H PRN famotidine [Pepcid] 20 mg tablet 20 mg PO BEDTIME Qty: 30 3RF pantoprazole 40 mg tablet,delayed release (DR/EC) 40 mg PO DAILY Vitamin Plus Low Iron 27 mg iron- 1 mg tablet 1 tab PO DAILY Qty: 90 1RF
--- NOTE | 2023-08-11 23:42 | PC.NURSE ---
PT reporting chest pain and spots in vision. EKG completed trop ordered. VSS. Report and hand over given to Fabiana
[2023-08-11] MEDS: Magnesium Hydrox/Alum Hydrox 30 ML ORAL.SUSP PO (23:44)
[2023-08-11] MEDS: Lidocaine HCl Viscous 2 % 15 ML SOLUTION MUCOUS MEM (23:44)
--- NOTE | 2023-08-12 00:01 | MHC.EDTECH ---
This tech took over care of patient at 2300,hourly rounds and vitals completed and lab was obtained and sent to lab. call hagen within reach
[2023-08-12 00:31] LABS: Troponin-I High Sensitivity < 2.7 ng/L (<3.5-17.0)
[2023-08-12] MEDS: Acetaminophen 325 MG TABLET 650 MG PO (01:19)
== END 2023-08-12 01:36 | disposition home or self-care (01) ==
PROVIDERS: Emergency Provider Student in an Organized Health Care Education/Training Program; PCP Internal Medicine
DX: O21.0 Mild hyperemesis gravidarum (principal); R07.89 Other chest pain; Z3A.10 10 weeks gestation of pregnancy; Z79.899 Other long term (current) drug therapy
CPT/HCPCS: 36415; 80053; 84484; 84702; 85027; 93005; 96361; 96374; 96375; 99284; 99285; J1200; J2765

== ENCOUNTER 2023-12-19 18:57 | Emergency (ER) | payer OTHER, SELFPAY ==
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
[2023-12-19 19:26] VITALS: BP 123/68; PULSE 93; RESP 16; TEMP 37; O2SAT 99; BMI 38.7
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
== END 2023-12-19 21:32 | disposition home or self-care (01) ==
PROVIDERS: Emergency Provider Internal Medicine; PCP Internal Medicine
DX: Z04.1 Encounter for examination and observation following transport accident (principal); O99.891 Other specified diseases and conditions complicating pregnancy; M54.9 Dorsalgia, unspecified; Z3A.29 29 weeks gestation of pregnancy
CPT/HCPCS: 76815; 99282; 99284

== ENCOUNTER 2024-05-01 12:26 | Outpatient (REF) | payer OTHER, SELFPAY ==
[2024-05-02 18:23] LABS: Rubella IgG Antibody 3.85 Index
[2024-05-04 05:54] LABS: TS Negative Control Passed; TS Panel A 0; TS Panel B 0; TS Positive Control Passed; TSpotTB Negative (Negative)
== END 2024-05-01 12:27 | disposition home or self-care (01) ==
LOC: HO.LAB 12:26
PROVIDERS: PCP Internal Medicine; Visit Provider Internal Medicine
DX: Z01.84 Encounter for antibody response examination (principal); Z11.1 Encounter for screening for respiratory tuberculosis
CPT/HCPCS: 36415; 86481; 86735; 86762; 86765

== ENCOUNTER 2024-08-23 12:27 | Outpatient (AMB) | payer OTHER, SELFPAY ==
[2024-08-23 12:30] VITALS: BP 120/70; BMI 35.0
--- NOTE | 2024-08-23 12:30 | A.OFFPC_ITS ---
Vital Signs 08/23/24 12:30 Height 5 ft Weight 179 lb BMI 35.0 BP 120/70 Blood Pressure Location Lt brachial Position Sitting Intake Visit Reasons: OVERDUE ANNUAL PE- LAST SEEN 2021. 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 Required: No Accompanied by: Self / Same As Patient Allergies No Known Allergies [No Known Allergies*] Allergy (Verified 08/23/24 12:39) Medication List - Last Reconciled 08/23/24 by Lidia Stockton MD epinephrine (EpiPen 2-Poli) 0.3 mg (0.3 mL) IM Q4H PRN escitalopram oxalate 5 mg PO DAILY hydroxyzine HCl 25 mg PO Q6-8H PRN Tobacco use date assessed: 08/23/24 Dental Screening Dental Screen Date: 08/23/24 Did you have a dental visit in the last 12 months?: Yes Did you have a dental problem in the last 6 months where you did not have access to dental care?: No Was dental information given to patient?: Patient has dentist HPI HPI Comments History of Present Illness Details This is a 24-year-old female with mild major depression that comes for her physical exam. Depression stable with escitalopram and she is looking to go back to counseling at [facility]. Pap smear done 2023 was normal as per patient. Complains of sore throat and COVID test was negative. Sore throat has been present for over a month. No fever. She also has hives due to an unknown allergen and would like allergy referral. [facility] Medical History (Updated 08/23/24 @ 12:52 by Lidia Stockton MD) Moderate anxiety Vaginal delivery Asthma Surgical History No history of previous surgery Family History Maternal Grandmother Diabetes mellitus Mother Cervical cancer Maternal Aunt Breast cancer Other Mental health disorder Myocardial infarct Substance use disorder Social History Household Members: Children Household Members Other:: fiance Housing: Apartment Alcohol intake: never Patient Tobacco Use Status: Never used Tobacco e-Cigarette/Vaping Use: Never Used Second Hand Smoke Exposure: No Substance Use Type: Marijuana service: No Current occupational status: employed 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 1. Little interest or pleasure in doing things: not at all 2. Feeling down, depressed, or hopeless: several days 3. Trouble falling or staying asleep, or sleeping too much: not at all 4. Feeling tired or having little energy: nearly every day 5. Poor appetite or overeating: nearly every day 6. Feeling bad about yourself - or that you are a failure or have let yourself or your family down: not at all 7. Trouble concentrating on things, such as reading the newspaper or watching television: not at all 8. Moving or speaking so slowly that other people could have noticed. Or the opposite - being so fidgety or restless that you have been moving around a lot more than usual: not at all 9. Thoughts that you would be better off or of hurting yourself in some way: not at all Total score: 7 Depression Screening Interpretation: Positive Depression Screening Follow-up: Existing condition, In treatment and Follow-up Visit Requested Depression Screening Done: Yes 85072 - PHQ-9 Billing: Yes Source: Developed by Drs. Alfonso Alvarez, Yudi Hull, Manoj Najera and colleagues, with an educational nathalie from [employer]. Thrive Questionnaire Date Thrive assessed: 08/23/24 I am a: Patient What is your living situation today?: I have a steady place to live Within the past 12 months, did the food you bought not last and you didn't have the money to get more?: Never true Within the past 12 months, did you worry whether your food would run out before you got money to buy more?: Never true Do you have trouble paying for medicines?: No Do you have trouble getting transportation to medical appointments?: No Do you have trouble paying your heating and electricity bill?: No Do you have trouble taking care of your child, family member or friend?: No Do you have trouble with day-to-day activities such as bathing, preparing meals, shopping, managing finances, etc.?: No Are you currently unemployed and looking for a job?: No Are you interested in more education?: Yes Please select the resources that you would like help with: None Currently or been in a relationship where the following occur: No concerns reported THRIVE Score: 0 AUDIT C Alcohol Use Questionnaire (AUDIT-C) 1. How often do you have a drink containing alcohol?: Never Total Score: 0 Score Reviewed/Action Taken: No RICKY-7 AMB Questionnaire RICKY-7 Date RICKY - 7 assessed: 08/23/24 Feeling nervous, anxious, or on edge: 1 = Several days Not being able to stop or control worryin = Several days Worrying too much about different things: 1 = Several days Trouble relaxin = Several days Being so restless that it is hard to sit still: 1 = Several days Becoming easily annoyed or irritable: 1 = Several days Feeling afraid as if something awful might happen: 0 = Not at all Total RICKY-7 score (0-4 normal; 5-9 mild; 10-14 moderate; 15-21 severe): 6 Source: Developed by Drs. Alfonso Alvarez, Yudi Hull, Manoj Najera and colleagues, with an educational nathalie from [employer]. RICKY-7 Assessment Billing RICKY-7 Assessment Tool: RICKY-7 Assessment 34941 Review of Systems Const All systems reviewed & are unremarkable except as noted in HPI and below Card Denies chest pain at rest, Denies chest pain with activity, Denies edema, Denies irregular heart rhythm, Denies claudication, Denies dyspnea, Denies dyspnea on exertion, Denies orthopnea, Denies paroxysmal nocturnal dyspnea and Denies slow heart rate Resp Denies cough, Denies dyspnea and Denies dyspnea on exertion GI Denies abdominal pain, Denies change in bowel habits, Denies excessive flatus, Denies nausea and Denies vomiting Denies urinary incontinence, Denies urinary hesitancy and Denies urinary urgency Musc Denies atrophy, Denies deformity and Denies limited range of motion Skin/Breast Denies bleeding lesions, Denies changing lesions and Denies rash Physical exam (Primary Care) Vital Signs: Last Vital Signs BP 120/70 08/23/24 12:30 BMI result Body Mass Index 35.0 BMI Assessment/Plan discussion: High BMI High, discussed plan: lifestyle, weight reduction, dietary and physical activity Tobacco/Smoking Status: Tobacco use Status Tobacco use date assessed 08/23/24 08/23/24 12:34 Patient Tobacco Use Status Never used Tobacco 08/23/24 12:34 e-Cigarette/Vaping Use Never Used 08/23/24 12:34 PHQ-9: PHQ-9 Score PHQ-9: Total score 7 08/23/24 12:35 Depression Screening Interpretation: Positive Depression Screening Follow-up: Existing condition, In treatment and Follow-up Visit Requested Thrive Assessment: Date of Thrive Assessment Date Thrive assessed 08/23/24 08/23/24 12:35 Currently or been in a relationship where the following occur: No concerns reported HENMT Head: Yes normal to inspection, Yes normocephalic and Yes atraumatic Ears: external ears normal Face and sinus: Yes sinuses nontender Mouth: lip normal Eyes General: appearance normal, both eyes and all related structures Eyelids: Yes eyelids normal Conjunctivae: conjunctivae normal Neck Neck: Yes normal visual inspection and Yes supple Resp Effort & Inspection: normal respiratory effort Auscultation: clear to auscultation bilaterally Cardio Jugular venous distension: no JVD Rate: regular rate Rhythm: regular rhythm Heart sounds: S1 normal heart sound present and S2 normal heart sound present GI Inspection: Yes normal to inspection Palpation (GI): Soft to palpation and nontender Auscultation: normal bowel sounds Skin General skin exam: no rashes or lesions noted Neuro General: no focal motor deficits Extrem General: Yes full ROM Psych Appearance: grossly normal Office Procedures Flu Questionnaire Does the patient have a severe egg allergy?: No Immunizations Fluarix Triv [id number] (PF) 45 mcg (15 mcg x 3)/0.5 mL IM syringe Performing Provider: Lidia Stockton MD Performing Location: [facility] [place] [facility] Documented (not given) by: CRISTINA Orozco on 08/23/24 12:35 Reason Not Given: Patient Refused Coding Level of Care Code Est Pt Level 3 (12242) Est Pt Prev Care 18-39y(67529) Diagnoses Physical exam Z00.00 Hives L50.9 Mild major depression F32.0 Additional Codes PHQ-9 - 05501 - PHQ-9 Billing: Yes ([id number]) RICKY-7 Assessment Billing - RICKY-7 Assessment Tool: RICKY-7 Assessment 15841 ([id number]) Time Spent (min) 31 Assessment & Plan Assessment & Plan (1) Physical exam: Code(s): Z00.00 - Encounter for general adult medical examination without abnormal findings Category: Medical Plan: Repeat in a year. (2) Hives: Code(s): L50.9 - Urticaria, unspecified Category: Medical Plan: Referred to Allergy and immunology. (3) Mild major depression: Code(s): F32.0 - Major depressive disorder, single episode, mild Category: Medical Plan: Continue escitalopram. Orders: Orders Influenza [id number] Immunization Today Z23 - Encounter for immunization Referrals Allergy & Immunology Referral L50.9 - Urticaria, unspecified Medications: New doxycycline hyclate 100 mg PO BID 5 days 10 caps 0RF
== END 2024-08-23 12:50 | disposition home or self-care (01) ==
PROVIDERS: PCP Internal Medicine; Visit Provider Internal Medicine
DX: Z00.00 Encounter for general adult medical examination without abnormal findings (principal); L50.9 Urticaria, unspecified; F32.0 Major depressive disorder, single episode, mild

== ENCOUNTER → 2024-08-23 12:27 | Outpatient (BNVA) | payer OTHER, SELFPAY | PROVIDERS: PCP Internal Medicine; Visit Provider Internal Medicine | DX: Z00.01 Encounter for general adult medical examination with abnormal findings (principal); F32.0 Major depressive disorder, single episode, mild; L50.9 Urticaria, unspecified | CPT/HCPCS: 96127; 99212; 99395 ==

== ENCOUNTER 2024-09-21 23:05 | Emergency (ER) | payer OTHER, SELFPAY ==
--- NOTE | ~2024-09-21 | XR_ITS ---
EXAMINATION: XR CHEST CLINICAL INFORMATION: Cough COMPARISON: Chest radiograph 09/18/2022. TECHNIQUE: 2 views of the chest were obtained. FINDINGS: Normal appearance of the cardiomediastinal structures. No effusions or pneumothoraces. Normal pattern of pulmonary vasculature. No focal pulmonary consolidation. No skeletal abnormalities noted. XR/XR chest 2V IMPRESSION: Normal chest. Lungs clear. Electronically signed by: Krish Giron MD 09/22/2024 01:16 AM KD
[2024-09-21 23:54] VITALS: BP 125/81; PULSE 77; RESP 20; TEMP 36.5; O2SAT 97; BMI 28.9
--- NOTE | 2024-09-21 23:59 | ECG_ITS ---
Test Reason : cp Blood Pressure : / mmHG Vent. Rate : 079 BPM Atrial Rate : 079 BPM P-R Int : 184 ms QRS Dur : 080 ms QT Int : 376 ms P-R-T Axes : 032 -02 032 degrees QTc Int : 431 ms Normal sinus rhythm with sinus arrhythmia Possible Left atrial enlargement Minimal voltage criteria for LVH, may be normal variant ( R in aVL ) Borderline ECG When compared with ECG of 11-AUG-2023 23:06, No significant change was found Referred By: Generic ED Physician Electronically Signed By:DIA GO MD
[2024-09-22 00:24] LABS: MANUAL DIFF FLAG NO
[2024-09-22 00:27] LABS: Basophils Percent Auto 0.5 % (0-2); Eosinophils Absolute Auto 0.2 X10*3/uL (0.0-0.4); Eosinophils Percent Auto 3.7 % (0-4); Hematocrit 36.4 % (37.0-47.0); Hemoglobin 12.6 g/dl (12.0-16.0); Imm Gran Abs Auto 0.02 X10*3/uL (0.00-0.03); Imm Gran Pct Auto 0.3 % (0.0-0.4); Lymphocytes Absolute Auto 1.6 X10*3/uL (1.2-4.9); Lymphocytes Percent Auto 26.6 % (20-40); Mean Corpuscular HGB Conc 34.6 g/dl (31.0-35.0); Mean Corpuscular Hemoglobin 29.9 pg (27.0-33.0); Mean Corpuscular Volume 86.5 fL (80.0-98.0); Mean Platelet Volume 10.3 fL (9.4-12.3); Monocytes Absolute Auto 0.6 X10*3/uL (0.1-1.2); Monocytes Percent Auto 10.3 % (2-11); Neutrophils Absolute Auto 3.5 x10*3/uL (2.0-8.3); Neutrophils Percent Auto 58.6 % (45-73); Platelet Count 259 X10*3/uL (160-400); Red Blood Count 4.21 X10*6/uL (4.20-5.50); Red Cell Distribution Width 13.2 % (11.0-16.0)
[2024-09-22 00:39] LABS: COVID-19 Test Negative (Negative); IDNOW Serial# 58CA691E
[2024-09-22 00:42] LABS: IDNOW Serial# 55D5AD1C; Influenza A Negative (Negative); Influenza B2 Negative (Negative)
[2024-09-22 00:49] LABS: Alanine Aminotransferase 44 U/L (0-31); Albumin Level 4.3 g/dL (3.5-5.0); Alkaline Phosphatase 64 U/L (39-117); Anion Gap 13 (12-20); Aspartate Amino Transferase 30 U/L (5-31); Bilirubin Total 0.2 mg/dL (0.0-1.0); Blood Urea Nitrogen 10 mg/dL (9-16); Calcium 8.9 mg/dL (8.4-10.2); Carbon Dioxide 22 mmol/L (22-29); Chloride 108 mmol/L (96-108); Creatinine Clr Calc Pharmacy 137.2; Estimated Glomerular Filt Rate > 60; Glucose Random 99 mg/dL (60-115); Potassium 3.4 mmol/L (3.3-5.1); Sodium 140 mmol/L (135-145); Total Protein 7.1 g/dL (6.5-8.0)
== END 2024-09-22 03:30 | disposition left against medical advice (07) ==
PROVIDERS: Emergency Provider Internal Medicine
DX: R05.9 Cough, unspecified (principal); Z53.21 Procedure and treatment not carried out due to patient leaving prior to being seen by health care provider; Z03.818 Encounter for observation for suspected exposure to other biological agents ruled out
CPT/HCPCS: 71046; 80053; 85025; 87502; 87635; 93005; 99281; 99283

== ENCOUNTER → 2024-09-21 23:59 | Outpatient (BNV) | payer OTHER, SELFPAY | PROVIDERS: Emergency Provider Internal Medicine; Visit Provider Internal Medicine Cardiovascular Disease | DX: R07.9 Chest pain, unspecified (principal) | CPT/HCPCS: 93010 ==

== ENCOUNTER 2025-08-27 09:00 | Emergency (ER) | payer OTHER, SELFPAY ==
[2025-08-27 09:08] VITALS: BP 120/78; PULSE 72; RESP 18; TEMP 36.6; O2SAT 98; BMI 34.2
[2025-08-27 10:03] LABS: Resp Syncy Virus RNA Qual PCR NEGATIVE (Negative); SARS COV2 PCR INHOUSE NEGATIVE (Negative)
--- NOTE | 2025-08-27 10:04 | ED.GENADULT ---
HPI - General Adult General Chief complaint: General Medical Stated complaint: Headache Time Seen by Provider: 08/27/25 09:37 Source: patient Mode of arrival: ambulatory Limitations: no limitations History of Present Illness ED Provider: TALYA SOUTH narrative: 25-year-old female who is relatively healthy does note some of her friends are sick. She states since Tuesday she has felt blocked up with thick green mucus from her nose she has no fevers or chills but she feels like her ears are blocked and she has pressure in her face. She has no history of sinus disease. She has no confusion or severe headache. She denies any recent travel. She is able to eat and drink complaint: Question sinus infection Onset (ago): day(s) (Since Tuesday) Location: face Severity: moderate Quality: aching Pain Consistency: intermittent Relieving factors: none Exacerbating factors: none Associated symptoms: headaches and loss of appetite Treatments prior to arrival: none Related Data Home Medications ?Medication ?Instructions ?Recorded ?Confirmed escitalopram oxalate 5 mg tablet 5 mg PO DAILY 08/23/24 08/23/24 Previous Rx's ?Medication ?Instructions ?Recorded epinephrine 0.3 mg/0.3 mL 0.3 mg (0.3 mL) IM Q4H PRN 02/24/23 injection, auto-injector (EpiPen anaphylaxis #2 ea 2-Poli) doxycycline hyclate 100 mg capsule 100 mg PO BID 5 days #10 caps 08/23/24 hydroxyzine HCl 25 mg tablet 25 mg PO Q6-8H PRN itching #30 tabs 10/28/24 amoxicillin 875 mg tablet 875 mg PO BID #14 tabs 08/27/25 Allergies Allergy/AdvReac Type Severity Reaction Status Date / Time No Known Allergies (No Known Allergy Verified 08/27/25 09:10 Allergies*) Review of Systems Review of Systems: Yes all other systems are reviewed and are negative PMFSH Past Medical History Attestation statement: The following information was validated with the patient. Source: old records reviewed Medical History Moderate anxiety Vaginal delivery Asthma Surgical History No history of previous surgery Family History Family History Maternal Grandmother Diabetes mellitus Mother Cervical cancer Maternal Aunt Breast cancer Other Mental health disorder Myocardial infarct Substance use disorder Social History Social History Household Members: Children Household Members Other:: fiance Housing: Apartment Alcohol intake: never Patient Tobacco Use Status: Never used Tobacco e-Cigarette/Vaping Use: Never Used Second Hand Smoke Exposure: No Substance Use Type: Marijuana service: No Current occupational status: employed 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 Oriented X3. No acute distress. Eyes: Pupils equal, round and reactive to light. ENT: Pharynx normal. Both TMs have clear effusion but no signs of acute otitis, she has mild mastoid tenderness to palpation Neck: Normal inspection. Neck supple. CVS: Normal heart rate and rhythm. Pulses normal. Respiratory: No respiratory distress. Abdomen: Soft and nontender. Skin: Skin warm and dry. Normal skin color. Extremities: No lower extremity edema. Neuro: Oriented X 3. No motor deficit. No sensory deficit. Medical Decision Making Medical Decision Making [facility] Narrative: Healthy 25-year-old female here with facial pain headache as well as thick nasal congestion and maxillary sinus tenderness to palpation on exam. She has a states of ear infection but I can see clear effusion both ears. She does have some obstructive pathology to the sinus infection I am going to dose with dexamethasone. We will obtain viral swab. Given her symptoms we will start on 7 days of amoxicillin. No concern for any deeper space infection Differential Diagnosis Differential Diagnoses: The differential diagnosis associated with the presentation includes Viral syndrome, sinusitis, here infection Admission/Observation Consideration of admission/observation: Escalation of care including admission/observation considered She has no signs of any deeper space infection or any other concerns can be DC home Lab Data [facility] Lab Attestation statement: I reviewed the patient's lab results. Labs: Lab Results 08/27/25 Range/Units 09:19 Influenza Type A (PCR) NEGATIVE (Negative) Influenza Type B (PCR) NEGATIVE (Negative) RSV RNA Qual (PCR) NEGATIVE (Negative) SARS-CoV-2 RNA (RT-PCR) NEGATIVE (Negative) External Record Review External record reviewed: Outpatient record Prescription Management I considered prescription management with: Antibiotic and Other Discharge Plan Discharge Clinical Impression: Acute bacterial sinusitis Patient Disposition: Home, Self-Care Instructions: Sinusitis (ED) Additional Instructions: Your next dose of antibiotics is tonight. You are negative for flu, COVID, RSV You were given a dose of steroids that she will work 3-5 days in your system and hopefully alleviate the obstructive feelings you have in your ears and nose Complete all antibiotics Return for any worsening symptoms or concerns On amoxicillin-clavulanate, softer bowel movements are to be expected. Call your provider if you move your bowels more than 4 times a day, your bowel movements are almost all liquid, or you get a rash.? Prescriptions: New amoxicillin 875 mg tablet 875 mg PO BID Qty: 14 0RF No Action hydroxyzine HCl 25 mg tablet 25 mg PO Q6-8H PRN (Reason: itching) Qty: 30 0RF epinephrine [EpiPen 2-Poli] 0.3 mg/0.3 mL auto-injector 0.3 mg IM Q4H PRN (Reason: anaphylaxis) Qty: 2 0RF escitalopram oxalate 5 mg tablet 5 mg PO DAILY doxycycline hyclate 100 mg capsule 100 mg PO BID 5 Days Qty: 10 0RF Stand Alone Forms: Work/School Release Print Language: Citizen Of [place]
[2025-08-27 10:20] VITALS: BP 120/78; PULSE 72; RESP 18; TEMP 36.6; O2SAT 98
== END 2025-08-27 10:20 | disposition home or self-care (01) ==
PROVIDERS: Emergency Provider Emergency Medicine; PCP Internal Medicine
DX: J01.90 Acute sinusitis, unspecified (principal); B96.89 Other specified bacterial agents as the cause of diseases classified elsewhere
CPT/HCPCS: 87637; 99282; 99283; J1100

== ENCOUNTER 2025-08-28 10:16 | Outpatient (AMB) | payer OTHER, SELFPAY ==
--- NOTE | 2025-08-28 10:18 | A.OFFPC_ITS ---
Vital Signs 08/28/25 10:20 Height 5 ft Weight 178 lb 8 oz BMI 34.9 BP 104/62 Blood Pressure Location Lt brachial Position Sitting Respiration 18 Pulse 71 Pulse Source Pulse Oximeter Temp 97.1 F Temp Source Temporal Artery Scan Pulse Oximetry (%) 99 Oxygen Delivery Method Room Air Intake Visit Reasons: annual exam Intake Note: annual exam Brigadier Required: No Accompanied by: Self / Same As Patient Allergies No Known Allergies (No Known Allergies*) Allergy (Verified 08/28/25 10:32) Medication List - Last Reconciled 08/28/25 by Lidia Stockton MD amoxicillin 875 mg PO BID epinephrine (EpiPen 2-Poli) 0.3 mg (0.3 mL) IM Q4H PRN Tobacco use date assessed: 08/28/25 Dental Screening Dental Screen Date: 08/28/25 Did you have a dental visit in the last 12 months?: Yes Did you have a dental problem in the last 6 months where you did not have access to dental care?: No Was dental information given to patient?: Patient has dentist HPI HPI Comments History of Present Illness Details The patient is a 25-year-old female presenting for an annual physical examination. She has no known drug allergies and no prior surgeries. She recently had a sinus infection, for which she was seen at an urgent care and is currently taking amoxicillin. She has a history of mild depression with a PHQ-9 score of 6 and is in therapy. The patient reports shortness of breath when she is worked up. Her last blood work was in June of the previous year and was normal, including hemoglobin, kidney function, and glucose levels. She is up to date on her vaccinations, including this year's flu shot, and her last Pap smear was last year, with normal results. Family history is significant for her mother, who had cervical cancer in her 30s, and her father, who has asthma; both parents are alive. The patient's height is 5'0 , giving her a BMI of 34.9, which is classified as Class I obesity. She had a referral for a weight loss program in 2021 but was never contacted for non-surgical options and wishes to be referred again. [facility] Medical History (Updated 08/28/25 @ 10:51 by Lidia Stockton MD) BMI 38.0-38.9,adult Moderate anxiety Vaginal delivery Asthma Surgical History No history of previous surgery Family History (Updated 08/28/25 @ 10:39 by Lidia Stockton MD) Maternal Grandmother Diabetes mellitus Mother Cervical cancer Maternal Aunt Breast cancer Father Asthma Other Mental health disorder Myocardial infarct Substance use disorder Social History (Updated 08/28/25 @ 10:39 by Lidia Stockton MD) Household Members: Children Household Members Other:: fiance Housing: Apartment Alcohol intake: current Alcohol intake frequency: holidays/special occasions only Alcohol type: wine Comment: ocasionally Patient Tobacco Use Status: Never used Tobacco e-Cigarette/Vaping Use: Never Used Second Hand Smoke Exposure: No Substance Use Type: Marijuana service: No Current occupational status: employed 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 1. Little interest or pleasure in doing things: not at all 2. Feeling down, depressed, or hopeless: not at all 3. Trouble falling or staying asleep, or sleeping too much: not at all 4. Feeling tired or having little energy: nearly every day 5. Poor appetite or overeating: nearly every day 6. Feeling bad about yourself - or that you are a failure or have let yourself or your family down: not at all 7. Trouble concentrating on things, such as reading the newspaper or watching television: not at all 8. Moving or speaking so slowly that other people could have noticed. Or the opposite - being so fidgety or restless that you have been moving around a lot more than usual: not at all 9. Thoughts that you would be better off or of hurting yourself in some way: not at all Total score: 6 Depression Screening Interpretation: Positive Depression Screening Follow-up: Existing condition, Community Mental Health Worker F/U and Follow-up Visit Requested Depression Screening Done: Yes 72911 - PHQ-9 Billing: Yes Source: Developed by Drs. Alfonso Alvarez, Yudi Hull, Manoj Najera and colleagues, with an educational nathalie from [employer] Thrive Questionnaire Date Thrive assessed: 08/28/25 I am a: Patient What is your living situation today?: I have a steady place to live Within the past 12 months, did the food you bought not last and you didn't have the money to get more?: Never true Within the past 12 months, did you worry whether your food would run out before you got money to buy more?: Never true Do you have trouble paying for medicines?: No Do you have trouble getting transportation to medical appointments?: No Do you have trouble paying your heating and electricity bill?: No Do you have trouble taking care of your child, family member or friend?: No Do you have trouble with day-to-day activities such as bathing, preparing meals, shopping, managing finances, etc.?: No Are you currently unemployed and looking for a job?: No Are you interested in more education?: No Please select the resources that you would like help with: None Currently or been in a relationship where the following occur: No concerns reported THRIVE Score: 0 AUDIT C Alcohol Use Questionnaire (AUDIT-C) 1. How often do you have a drink containing alcohol?: Monthly or less 2. How many drinks containing alcohol do you have on a typical day when you are drinking?: 1 or 2 3. How often do you have six or more drinks on one occasion?: Never Total Score: 1 Score Reviewed/Action Taken: No RICKY-7 AMB Questionnaire RICKY-7 Date RICKY - 7 assessed: 08/28/25 Feeling nervous, anxious, or on edge: 0 = Not at all Not being able to stop or control worryin = Not at all Worrying too much about different things: 0 = Not at all Trouble relaxin = Not at all Being so restless that it is hard to sit still: 0 = Not at all Becoming easily annoyed or irritable: 0 = Not at all Feeling afraid as if something awful might happen: 0 = Not at all Total RICKY-7 score (0-4 normal; 5-9 mild; 10-14 moderate; 15-21 severe): 0 Source: Developed by Drs. Alfonso Alvarez, Manoj Khanna and colleagues, with an educational nathalie from [employer] RICKY-7 Assessment Billing RICKY-7 Assessment Tool: RICKY-7 Assessment 94685 Review of Systems Const All systems reviewed & are unremarkable except as noted in HPI and below Card Denies chest pain at rest, Denies chest pain with activity, Denies edema, Denies irregular heart rhythm, Denies claudication, Denies dyspnea, Denies dyspnea on exertion, Denies orthopnea, Denies paroxysmal nocturnal dyspnea and Denies slow heart rate Resp Denies cough, Denies dyspnea and Denies dyspnea on exertion Physical exam (Primary Care) Vital Signs: Last Vital Signs Temp 97.1 F 08/28/25 10:20 Pulse 71 08/28/25 10:20 Resp 18 08/28/25 10:20 BP 104/62 08/28/25 10:20 Pulse Ox 99 08/28/25 10:20 Oxygen Delivery Method Room Air 08/28/25 10:20 BMI result Body Mass Index 29.7 BMI Assessment/Plan discussion: High BMI High, discussed plan: lifestyle, weight reduction, dietary and physical activity Tobacco/Smoking Status: Tobacco use Status Tobacco use date assessed 08/28/25 08/28/25 10:25 Patient Tobacco Use Status Never used Tobacco 08/28/25 10:25 e-Cigarette/Vaping Use Never Used 08/28/25 10:25 PHQ-9: PHQ-9 Score PHQ-9: Total score 6 08/28/25 10:25 Depression Screening Interpretation: Positive Depression Screening Follow-up: Existing condition, Community Mental Health Worker F/U and Follow-up Visit Requested Thrive Assessment: Date of Thrive Assessment Date Thrive assessed 08/28/25 08/28/25 10:25 Currently or been in a relationship where the following occur: No concerns reported [facility] Head: Yes normal to inspection, Yes normocephalic and Yes atraumatic Ears: external ears normal Eyes General: appearance normal, both eyes and all related structures Eyelids: Yes eyelids normal Conjunctivae: conjunctivae normal Neck Neck: Yes normal visual inspection and Yes supple Resp Effort & Inspection: normal respiratory effort Auscultation: clear to auscultation bilaterally Cardio Jugular venous distension: no JVD Rate: regular rate Rhythm: regular rhythm Heart sounds: S1 normal heart sound present and S2 normal heart sound present GI Inspection: Yes normal to inspection Palpation (GI): Soft to palpation and nontender Auscultation: normal bowel sounds Skin General skin exam: no rashes or lesions noted Neuro General: no focal motor deficits Extrem General: Yes full ROM Psych Appearance: grossly normal Coding Level of Care Code Est Pt Level 3 (90755) Est Pt Prev Care 18-39y(69219) Diagnoses Physical exam Z00.00 Mild major depression F32.0 Class 1 obesity with body mass index (BMI) of 34.0 to 34.9 in adult E66.811; Z68.34 Additional Codes RICKY-7 Assessment Billing - RICKY-7 Assessment Tool: RICKY-7 Assessment 74016 ([id number]) PHQ-9 - 09114 - PHQ-9 Billing: Yes ([id number]) Time Spent (min) 30 Assessment & Plan Assessment & Plan (1) Physical exam: Code(s): Z00.00 - Encounter for general adult medical examination without abnormal findings Category: Medical (2) Mild major depression: Code(s): F32.0 - Major depressive disorder, single episode, mild Category: Medical (3) Class 1 obesity with body mass index (BMI) of 34.0 to 34.9 in adult: Code(s): E66.811 - Obesity, class 1; Z68.34 - Body mass index [BMI] 34.0-34.9, adult Category: Medical Plan Plan 1. Encounter for general adult medical examination without abnormal findings Z00.00 The patient is a 25-year-old female who presents for a routine wellness visit. Health maintenance status was reviewed, and she is up to date on her flu shot and Pap smear. Fasting labs will be ordered to check cholesterol, glucose, and kidney and liver function. 2. Obesity, class 1 E66.811 The patient's height was corrected to 5'0 , which calculates to a BMI of 34.9, consistent with Class I obesity. She expressed interest in weight management and noted a prior referral from 2021 did not result in a follow-up for non-surgical options. A new referral will be sent to the weight management program. 3. Depression, unspecified F32.A The patient reports a history of mild depression, with a PHQ-9 of 6. She is currently in therapy and managing well. Continue with current therapy. Orders: Orders Lipid Panel Today E78.5 - Hyperlipidemia, unspecified, Z00.00 - Encounter for general adult medical examination without abnormal findings Comprehensive [place]. Panel Fast Today Z00.00 - Encounter for general adult medical examination without abnormal findings Referrals Medical Weight Management Referral E66.811 - Obesity, class 1, Z68.34 - Body mass index [BMI] 34.0-34.9, adult
[2025-08-28 10:20] VITALS: BP 104/62; PULSE 71; RESP 18; TEMP 36.2; O2SAT 99; BMI 34.9
--- OUTSIDE RECORDS SUMMARY | 2025-08-28 19:45 | XMS_ITS | Clinical Summary ---
Author Organization [facility] ity Address [address] [place] [address] Care Team Providers Care General Scrap Worker Name Role Phone Unavailable Primary Care Provider Unavailabl e Social History Tobacco Use Types Packs/Day Years Used Date Smoking Tobacco: Never Assessed Comments Unknown Sex and Gender Information Value Date Recorded Sex Assigned at Not on file Legal Sex Female 5:20 AM EST Gender Identity Not on file Sexual Orientation Not on file Plan of Treatment Health Maintenance Due Date Last Done Comments HPV Vaccines (1 - 3-dose series) 2014 DTaP,Tdap,and Td Vaccines (1 - Tdap) 2018 Hepatitis B Vaccines (1 of 3 - 19+ 3-dose series) 2018 Cervical Cancer Screening: P ap Smear 2020 Depression Screening 10/10/2024 COVID-19 Vaccine ( - 2024-2 6 season) 2025 Influenza Vaccine (#1) 2025 RSV Immunization Adult Patie nts (1 - 1-dose 75+ series) 2074 HIB Vaccines Aged Out No longer eligi ble based on patient's age to complete this topic Hepatitis A Vaccines Aged Out No long er eligible based on patient's age to complete this topic IPV Vaccines Aged Out No longer eligi ble based on patient's age to complete this topic MMR Vaccines Aged Out No longer eligi ble based on patient's age to complete this topic Meningococcal ACWY Vaccine Aged Out N o longer eligible based on patient's age to complete this topic Meningococcal B Vaccine Aged Out No l onger eligible based on patient's age to complete this topic Pneumococcal Vaccine: Pediat rics (0 to 5 Years) and At-Risk Patients (6 to 49 Years) Aged Out No longer eligible b ased on patient's age to complete this topic RSV Immunization Patients Un carmen 20 months Aged Out No longer eligible b ased on patient's age to complete this topic Varicella Vaccines Aged Out No longer eligible based on patient's age to complete this topic
== END 2025-08-28 10:49 | disposition home or self-care (01) ==
LOC: HO.HMCH 10:17
PROVIDERS: PCP Internal Medicine; Visit Provider Internal Medicine
DX: Z00.00 Encounter for general adult medical examination without abnormal findings (principal); F32.0 Major depressive disorder, single episode, mild; E66.811 Obesity, class 1; Z68.34 Body mass index [BMI] 34.0-34.9, adult

== ENCOUNTER → 2025-08-28 10:16 | Outpatient (BNVA) | payer OTHER, SELFPAY | PROVIDERS: PCP Internal Medicine; Visit Provider Internal Medicine | DX: Z00.00 Encounter for general adult medical examination without abnormal findings (principal); F32.0 Major depressive disorder, single episode, mild; E66.811 Obesity, class 1; Z68.34 Body mass index [BMI] 34.0-34.9, adult | CPT/HCPCS: 96127; 99395 ==